=== PATIENT | male | born 1940 | race Caucasian/White ===

== ENCOUNTER 2017-07-29 12:20 | Outpatient (CLI) | payer MEDICARE ==
[2017-07-29] MEDS ORDERED: Iopamidol 370 76% 100 ML VIAL ONE (13:54)
--- NOTE | 2017-07-29 14:56 | CT ---
CT OF THE CHEST WITH CONTRASTS: Date: 07/29/17 COMPARISON: 12/26/14. HISTORY: Abnormal imaging of the lung field on prior imaging at an outside hospital. TECHNIQUE: Multiple contiguous axial images were obtained in a CT of the chest with contrast. Coronal reformats were performed. FINDINGS: There is a stable very small peripheral nodular opacity on image 43 and 44 of 69 in the left lower lo be. This measures 4.0 mm in size. No other pulmonary nodules or masses are seen. No pneumothorax or p leural effusion present. The heart is upper limits of normal in size. There are calcifications in the aorta and coronary arter ies. A pacemaker is seen with its leads in the right atrium and ventricle. No hilar or mediastinal ly mphadenopathy seen. The visualized subdiaphragmatic structures are unremarkable. Degenerative changes are seen in the spi ne. IMPRESSION: No significant intrathoracic abnormality. POS: JASPREET
== END 2017-07-29 12:21 | disposition home or self-care (01) ==
LOC: CT 12:20
PROVIDERS: ATTEND Internal Medicine Pulmonary Disease
DX: R91.8 Other nonspecific abnormal finding of lung field (principal)
CPT/HCPCS: 71260

== ENCOUNTER 2018-02-11 18:01 | Observation (INO) | payer MEDICARE ==
[2018-02-11 19:04] LABS: Troponin I 0.014 ng/mL (< 0.028)
[2018-02-11] MEDS ORDERED: Nitroglycerin 0.4 MG TAB (25 Tab Bottle) ONE (19:10)
[2018-02-11] MEDS ORDERED: Sodium Chloride 0.9% 1,000 ML IV SCH (21:34)
[2018-02-11] MEDS ORDERED: Ondansetron HCl/PF 4 MG/2 ML Vial IVP PRN ×2 (21:34→22:21)
[2018-02-11] MEDS ORDERED: Ondansetron ODT 4 MG TAB SL PRN (21:34)
[2018-02-11] MEDS ORDERED: Acetaminophen 325 MG TAB PO PRN ×2 (21:34→22:21)
[2018-02-11 21:46] VITALS: BMI 26.3
[2018-02-11 22:02] LABS: Troponin I Less than 0.010 ng/mL (< 0.028)
[2018-02-11] MEDS ORDERED: hydrALAZINE 20 MG/ML VIAL SLOW IVP PRN (22:21)
[2018-02-11] MEDS ORDERED: Nitroglycerin 0.4 MG TAB (25 Tab Bottle) SL PRN (22:21)
[2018-02-11] MEDS ORDERED: Ondansetron ODT 4 MG TAB PO PRN (22:21)
[2018-02-11] MEDS ORDERED: Mag-Al 1200 mg/1200 mg/30 ML UDCUP PO PRN (22:21)
[2018-02-11] MEDS ORDERED: Nitroglycerin 0.4 MG TAB (25 Tab Bottle) PO PRN (22:21)
[2018-02-12 01:26] LABS: Troponin I Less than 0.010 ng/mL (< 0.028)
--- NOTE | 2018-02-12 04:54 | HP ---
PRIMARY CARE PHYSICIAN: Tam Dowd MD CHIEF COMPLAINT: Chest pain. HISTORY OF PRESENT ILLNESS: Mr. Samuels is a pleasant 77-year-old gentleman who has a history of hyper tension as well as coronary artery disease. He presented to the emergency room with complaints of ch est pain, which he says started about 2 days ago and it started in the evening while he was lying kenny und and watching television. He says that the pain was on the right side of his chest, it was sharp and stabbing pain and it would last about 2 to 3 seconds and then go away, it got progressively worse over the next couple of days and he noticed that it started to move over to the left side of his ranjeet st and into his back. He says it has gotten as bad as a 7-03/26. He had no nausea or vomiting with i t. No diaphoresis, but he did notice some shortness of breath. He came to the emergency room for ev aluation. He says he was given a nitroglycerin which helped the shortness of breath, but it did help the pain much and he is being placed in observation for further evaluation. It is reported he had a CT scan of the chest at the outside emergency room, which was negative for PE. He has had occasiona l cough, but no congestion, no fevers, no chills. He denies any PND, no orthopnea. No lower extremi ty edema except on the right ankle, which sometimes swells from a previous surgery and injury. REVIEW OF SYSTEMS: All systems were reviewed and negative except as mentioned in the history of pres ent illness. PAST MEDICAL HISTORY: Hypertension, coronary artery disease, gastroesophageal reflux disease, arthri tis, bladder cancer, crush injury to his leg as well as a deep vein thrombosis and status post filter placement. ALLERGIES: No known drug allergies. PAST SURGICAL HISTORY: He has had a stent to the LAD. He has had 2 other stents, pacemaker, back ramirez rgery x2, foot surgery due to the crush injury, a bladder tumor extraction, [place] filter placeme nt, and hernia repair. SOCIAL HISTORY: He is . He is a former smoker, he quit in 1992. He denies any alcohol use. CODE STATUS: FULL CODE and his medical power of staff attorney is his . FAMILY HISTORY: Significant for heart disease and hypertension. MEDICATIONS: Include amlodipine 5 mg daily, atenolol 25 mg daily, isosorbide mononitrate 15 mg daily , aspirin 81 mg daily, atorvastatin 20 mg daily, citalopram 20 mg daily, meloxicam as needed, and Nit rostat 0.4 mg daily. PHYSICAL EXAMINATION: GENERAL: He is alert and oriented. He appears to be in no acute distress. He is well-developed, we ll-nourished. VITAL SIGNS: His blood pressure was 132/66, heart rate 60, respiratory rate of 14, temperature is 98 .9. HEENT: Pupils are equal, round, and reactive. Extraocular muscles are intact. His sclerae are anic teric. Throat: He has got poor dentition. There is no erythema, no exudates. NECK: No adenopathy, no bruits. LUNGS: Clear to auscultation. There was no wheezing, no rales. CARDIOVASCULAR: He has a normal S1, S2. I did not appreciate an S3 or S4. No murmurs, clicks, no r ubs. ABDOMEN: Soft, it is nontender, nondistended. Positive for bowel sounds. There is no rebound or gu arding. EXTREMITIES: There is no edema nor clubbing or cyanosis. He has got 2+ dorsalis pedis pulses bilate rally. NEUROLOGICALLY: The exam is grossly nonfocal. Muscle strength is intact. SKIN/INTEGUMENT: There are no skin changes. No rash. LABORATORY AND DIAGNOSTIC RESULTS: Troponin was 0.014 and there were no grossly abnormal lab results reported and these were from the report from the emergency room. EKG was atrial paced and as previo usly mentioned, he had a CT angiogram of the chest which was negative for PE. ASSESSMENT AND PLAN: This is a pleasant 77-year-old gentleman who is being admitted for chest pain. It is unclear whether or not this is cardiac in origin. The patient says he cannot remember the sym ptoms he had with his previous stents. Therefore, given his extensive cardiac history, he will be pl aced in observation. We will get another set of cardiac enzymes and a nuclear stress test in the a.m . should he rule out. We will continue his usual medications for hypertension as well as coronary ar camilla disease with the exception of the Isordil, which will be substituted for nitro paste.
[2018-02-12 04:57] LABS: Cardiac Risk 2.7 (Less than 4.5)
[2018-02-12] MEDS: Nitroglycerin 2% Ointment 1 INCH/1 GM Packet TOP SCH ×4 (05:54→22:08)
[2018-02-12] MEDS ORDERED: Aspirin 325 mg Enteric Coated Tablet PO SCH (09:00)
[2018-02-12] MEDS ORDERED: Aspirin 325 MG TAB PO SCH (09:00)
[2018-02-12] MEDS: Amlodipine 10 MG TAB PO SCH (09:21)
[2018-02-12] MEDS: Famotidine 20 MG TAB PO SCH ×2 (09:21→20:38)
[2018-02-12] MEDS: Atenolol 25 MG TAB PO SCH (09:22)
[2018-02-12] MEDS: Atorvastatin Calcium 20 MG TAB PO SCH (09:22)
[2018-02-12] MEDS: Citalopram 20 MG TAB PO SCH (09:22)
[2018-02-12] MEDS: Enoxaparin Sodium 40 MG/0.4 ML SYRINGE SC SCH (09:27)
[2018-02-12] MEDS ORDERED: ADENOSINE 60 MG/20 ML VIAL ONE (09:33)
--- NOTE | 2018-02-12 17:45 | NM ---
NUCLEAR MEDICINE CARDIAC STRESS WITH EF AND WALL MOTION: 02/12/18 HISTORY: Chest pain. History of previous cardiac catheterization and stent placement. COMPARISON: 04/01/13. TECHNIQUE: Patient administered 9 millicuries of technetium 99m Sestamibi for rest imaging and 30 millicuries of technetium 99m Sestamibi for stress imaging. Cardiac gating is performed. FINDINGS: Homogeneous distribution of radiotracer in the left ventricle. No reversibility. No filling defect. TID is 1.12. End diastolic volume is 125 mL. End systolic volume is 56 mL. CARDIAC GATING: Normal motion and thickening. 55% ejection fraction. IMPRESSION: 1. No reversibility or filling defect. 2. 55% ejection fraction. POS: JASPREET
--- NOTE | 2018-02-12 19:28 | PDOC.PN ---
- Subjective Encounter Start Date: 02/12/18 Encounter Start Time: 19:29 Pt seen for followup re: chest pain. Reports ongoing chest pain, denies nausea or vomiting. - Objective Resuscitation Status: Resuscitation Status FULL:Full Resuscitation MAR Reviewed: Yes Vital Signs & Weight: Vital Signs (12 hours) Temp Pulse Resp BP Pulse Ox 02/12/18 16:51 97.4 F L 62 20 160/76 H 95 02/12/18 11:57 97.5 F L 62 20 141/65 H 91 L 02/12/18 08:00 97.6 F 65 24 H 134/64 93 L 02/12/18 07:30 98.6 F 61 16 Weight Weight 194 lb 1.6 oz I&O: 02/11/18 02/12/18 02/13/18 06:59 06:59 06:59 Intake Total 240 300 Output Total 150 Balance 90 300 EKG Reviewed by me: Yes (Tele: NSR) Phys Exam - Physical Examination Constitutional: NAD HEENT: moist MMs, sclera anicteric, oral pharynx no lesions, 2+ tonsils Neck: no nodes, no JVD, supple, full ROM Respiratory: no wheezing, no rales, no rhonchi, clear to auscultation bilateral Cardiovascular: RRR, no rub S1, s2 Gastrointestinal: soft, non-tender, no distention, positive bowel sounds Musculoskeletal: no edema Neurological: moves all 4 limbs Psychiatric: normal affect, A&O x 3 Dx/Plan (1) Chest pain Code(s): R07.9 - CHEST PAIN, UNSPECIFIED Status: Acute Comment: Stress test normal, CTA -ve for PE. ? trial of Ranexa. (2) HTN (hypertension) Code(s): I10 - ESSENTIAL (PRIMARY) HYPERTENSION Status: Chronic Comment: Monitor vital signs, titrate antihypertensives as needed. (3) GERD (gastroesophageal reflux disease) Code(s): K21.9 - GASTRO-ESOPHAGEAL REFLUX DISEASE WITHOUT ESOPHAGITIS Status: Chronic Comment: continue famotidine (4) S/P IVC filter Status: Chronic - Plan * . Review of Systems - Review of Systems Constitutional: negative: fever, chills, sweats, weakness, malaise Respiratory: SOB with Excertion. negative: Cough, Shortness of Breath, Pleuritic Pain, Wheezing Cardiovascular: chest pain. negative: palpitations, orthopnea, paroxysmal nocturnal dyspnea, edema, light headedness Gastrointestinal: negative: Nausea, Vomiting, Abdominal Pain, Diarrhea, Constipation, Melena, Hematochezia Genitourinary: negative: Dysuria, Frequency, Incontinence, Hematuria, Retention Skin: negative: Rash, Lesions, Lei, Bruising - Medications/Allergies Allergies/Adverse Reactions: Allergies Allergy/AdvReac Type Severity Reaction Status Date / Time No Known Allergies Allergy Verified 02/11/18 21:41 Medications: Current Medications Acetaminophen (Tylenol) 650 mg PO Q4H PRN PRN Reason: Headache/Fever or Pain Al Hydroxide/Mg Hydroxide (Maalox) 30 ml PO Q6H PRN PRN Reason: Heartburn or Indigestion Amlodipine Besylate (Norvasc) 10 mg PO DAILY COUNT INCLUDES THE [facility] Last Admin: 02/12/18 09:21 Dose: 10 mg Aspirin (Aspirin) 325 mg PO DAILY COUNT INCLUDES THE [facility] Last Admin: 02/12/18 09:22 Dose: 325 mg Atenolol (Tenormin) 25 mg PO DAILY COUNT INCLUDES THE [facility] Last Admin: 02/12/18 09:22 Dose: Not Given Atorvastatin Calcium (Lipitor) 20 mg PO DAILY COUNT INCLUDES THE [facility] Last Admin: 02/12/18 09:22 Dose: 20 mg Citalopram Hydrobromide (Celexa) 20 mg PO DAILY COUNT INCLUDES THE [facility] Last Admin: 02/12/18 09:22 Dose: 20 mg Enoxaparin Sodium (Lovenox) 40 mg SC 0900 COUNT INCLUDES THE [facility] Last Admin: 02/12/18 09:27 Dose: Not Given Famotidine (Pepcid) 20 mg PO BID COUNT INCLUDES THE [facility] Last Admin: 02/12/18 09:21 Dose: 20 mg Hydralazine HCl (Apresoline) 10 mg SLOW IVP Q4H PRN PRN Reason: Systolic BP > 180 Nitroglycerin (Nitro-Bid 2% Ointment) 0.5 inch TOP Q8HR COUNT INCLUDES THE [facility] Last Admin: 02/12/18 16:50 Dose: 0.5 inch Nitroglycerin (Nitrostat) 0.4 mg SL Q5MIN PRN PRN Reason: Chest Pain Ondansetron HCl (Zofran Odt) 4 mg PO Q6H PRN PRN Reason: Nausea/Vomiting Ondansetron HCl (Zofran) 4 mg IVP Q6H PRN PRN Reason: Nausea/Vomiting
[2018-02-12] MEDS ORDERED: Acetaminophen/Codeine 30-300mg Tablet PO PRN (19:31)
[2018-02-13] MEDS: Nitroglycerin 2% Ointment 1 INCH/1 GM Packet TOP SCH ×2 (05:09→15:02)
[2018-02-13] MEDS ORDERED: Aspirin 81 mg Enteric Coated Tablet PO SCH (09:00)
[2018-02-13] MEDS: Atenolol 25 MG TAB PO SCH (09:41)
[2018-02-13] MEDS: Amlodipine 10 MG TAB PO SCH (09:41)
[2018-02-13] MEDS: Famotidine 20 MG TAB PO SCH (09:41)
[2018-02-13] MEDS: Enoxaparin Sodium 40 MG/0.4 ML SYRINGE SC SCH (09:42)
[2018-02-13] MEDS: Citalopram 20 MG TAB PO SCH (09:42)
[2018-02-13] MEDS: Atorvastatin Calcium 20 MG TAB PO SCH (09:42)
[2018-02-13] MEDS ORDERED: Naproxen 500 MG TAB PO SCH ×2 (14:00→21:00)
[2018-02-13 15:44] VITALS: BP 138/72; TEMP 98.1
--- NOTE | 2018-02-13 21:02 | CON ---
DATE OF CONSULTATION: 02/13/2018 HISTORY: Valdemar Samuels is a pleasant 77-year-old white male who follows with Dr. Sebastian although I did place a pacemaker in him in 07/2012. He apparently underwent coronary angiography in [place] in 1999 and was found to have severe stenosis in small vessels, felt not to be amenable to percutaneous intervention. He once was hospitalized here in 07/2012 with an episode of dizziness, lightheadedness and presyncope. Monitor at home apparently registered heart rate in the 30s. He was taken to [facility], found to have heart rates in the 30s and 40s and here, he had heart rates as low as 35 on telemetry. He also would have episodes of severe chest pain lasting hours. This was a band-like area in his midsternal chest region without radiation or associated symptoms. He then underwent cardiac catheterization by Dr. Sebastian. There was a 50%-60% first diagonal stenosis. There was a branch of the first obtuse marginal which had a 95% stenosis with thrombus present. He underwent placement of Promus 2.25 x 12 mm stent. The following day he underwent placement of a dual chamber pacemaker via the left subclavian approach. In 12/2015, he again underwent catheterization and was found to have a 40%-50% stenosis in the mid LAD and 70% apical LAD stenosis. There continued to be good stent result in the obtuse marginal. He underwent back surgery and then continued to complain of exertional dyspnea. He underwent repeat catheterization in 01/2016. There was a 50%-60% proximal LAD with mean luminal area greater than 6.0 mm2. He then underwent placement of Synergy 2.25 x 12 mm stent in the apical LAD. He had Lexiscan Cardiolite scan performed in the office in 07/2017. This probably was normal without evidence of ischemia. He was last seen in the office on 11/04/2017. He denied any chest discomfort. He now presents to the [facility] on 02/11/2018 complaining of 3-4 days of chest discomfort. These episodes occur at rest where he gets a very sharp pain on the right side of his chest, sometimes radiating to the back around to his scapula. None of the episodes seem to last for more than 1-2 seconds, although he may have repetitive episodes of pain every 2-3 minutes. He went to the [facility], underwent CT angiogram, apparently he had no evidence for pulmonary emboli and was transferred here. Cardiac enzymes were unremarkable. Yesterday, he underwent adenosine Cardiolite testing, which revealed no evidence of ischemia. There were no EKG changes during the test. He did have somewhat more of a prolonged episode of his chest discomfort that did seem as sharp in nature as previously after the stress test. His pain is not pleuritic in nature. He did notice one palpable are of tenderness yesterday. PAST MEDICAL HISTORY: Hypertension, coronary artery disease, hypercholesterolemia, GERD, bladder cancer, deep vein thrombosis after crush injury to his leg and placement of an IVC filter. OPERATIONS: He has had a stent placed in the obtuse marginal and then in the left anterior descending, pacemaker placement, bladder tumor extraction, [place] filter placement, hernia repair, back surgery x2, and foot surgery after crush injury. MEDICATIONS: Amlodipine 10 mg daily, Ecotrin 81 daily, atenolol 25 daily, atorvastatin 20 mg daily, Celexa 20 daily, isosorbide mononitrate 15 mg daily, and nitroglycerin p.r.n. ALLERGIES: None. SOCIAL HISTORY: He smoked until 1992. He denies any alcohol use. FAMILY HISTORY: Significant for coronary artery disease. REVIEW OF SYSTEMS: Twelve point review of systems otherwise unremarkable. PHYSICAL EXAMINATION: VITAL SIGNS: 123/58, pulse of 60. HEENT: PERRL. NECK: Supple. LUNGS: Chest is clear. CARDIAC: S1, S2 were normal, without any S3, S4 or murmurs. ABDOMEN: Normal bowel sounds, without tenderness, organomegaly. EXTREMITIES: Revealed no clubbing, cyanosis or edema. NEUROLOGIC: Grossly intact. SKIN: Warm and dry. LABORATORY DATA: EKG revealed atrial pacing, nonspecific ST and T-wave changes. Cardiac enzymes were unremarkable. Hemoglobin 14.2, hematocrit 43.6, white count 5600, platelets 153,000. Cholesterol 114, triglycerides 53, HDL 42 , LDL 61. IMPRESSION: 1. Atypical, noncardiac chest pain, most consistent with musculoskeletal pain. 2. Normal Cardiolite at this time. 3. History of drug-eluting stent placement in the first obtuse marginal branch and in the apical left anterior descending. 4. Status post pacemaker placement for near syncope with heart rates in the 30s. 5. Hypertension. 6. Hypercholesterolemia. 7. History of deep venous thrombosis with inferior vena cava filter placement. PLAN: Mr. Samuels's chest discomfort is atypical for cardiac pain and only lasts for a few seconds at a time. He has a normal Cardiolite at this time. From a cardiac standpoint, I would not change any of his medications. Consideration can be given to use of any inflammatory medications to try to help with this discomfort. At the present time, I do not feel any further cardiac evaluation or change in his medications is warranted. SCOTTIE
--- NOTE | 2018-02-14 01:12 | DIS ---
PRIMARY CARE PROVIDER: Tam Dowd M.D. DATE OF ADMISSION: 02/11/2018 DATE OF DISCHARGE: 02/13/2018 DISCHARGE DIAGNOSIS: Chest pain. CONDITION OF PATIENT ON THE DAY OF DISCHARGE: Stable. I assessed Mr. Samuels on the day of discharge. He reports that chest pain is better, but still present, on and off. Vital signs are stable. S1 a nd S2 are heard, regular. Lungs are clear to auscultation bilaterally. HOSPITAL COURSE: Mr. Samuels is a pleasant 77-year-old gentleman, who was admitted to [facility] following transfer from [facility] on 02/11/2018 for chest pain. He w as already ruled out for pulmonary embolism with a CT angiogram at [facility]. He had a nuclear stress test, which did not show any reversibility or filling defect and 55% left ventricular ejection fraction. Because of ongoing chest discomfort, he was also seen by Cardiology Service. It was felt that his chest pain was likely musculoskeletal. He is advised to use naproxen, over-the-co unter, as directed. DISCHARGE MEDICATIONS: No change was made to the preadmission home medications as dictated by Dr. Niall castanon on history and physical note dated 02/11/2018. CONSULTATIONS DURING THIS HOSPITALIZATION: Cardiology, Dr. Adams. During this hospitalization, he had troponin I that was negative x3, triglycerides 53, cholesterol 11 4, LDL cholesterol 61 and HDL cholesterol 42. Many thanks for allowing me to participate in your patient's care. Please feel free to contact me wi th any questions or concerns. DISCHARGE DESTINATION: Home.
--- NOTE | 2018-02-14 11:33 | STRESS ---
Acquisition Time: 2018-02-12 13:57:04 Total Exercise Time: 00:04:00 Test Indications: CHEST PAIN Medications: Protocol: ADENOSINE Max HR: 063 BPM 44% of Pred: 142 BPM Max BP: 128/058 mmHG Max Work Load: 1.0 METS RESTING ECG: ATRIAL PACED RHYTHM AT 60 BPM SYMPTOMS: NONE NORMAL BP REPONSE ECTOPY: NONE ECG STRESS: NO SIGNIFICANT CHANGES INTERPRETATION: AWAIT NUCLEAR IMAGES FOR DEFINITIVE DIAGNOSIS Confirmed by EDDIE MORALES ([id number]), assistant film editor ERNESTO CHERY ([id number]) on 02/14/2018 11:33:00 AM Referred By: MD Aron BUSTILLO Confirmed By:EDDIE MORALES
--- NOTE | 2018-02-20 12:02 | EKG ---
Test Reason : Blood Pressure : / mmHG Vent. Rate : 065 BPM Atrial Rate : 065 BPM P-R Int : 194 ms QRS Dur : 084 ms QT Int : 392 ms P-R-T Axes : 000 -06 021 degrees QTc Int : 407 ms Atrial-paced rhythm Nonspecific ST abnormality Abnormal ECG Confirmed by CLARA KELLER, PILLO Al ([id number]), editor managing newspaper LIYAH MUNSON ([id number]) on 02/20/2018 12:02:35 PM Referred By: Confirmed By:PILLO ELIZABETH MD
== END 2018-02-13 17:55 | disposition home or self-care (01) ==
LOC: ERS 18:01 → 2SW 19:17
PROVIDERS: ADMIT Internal Medicine; ATTEND Internal Medicine
DX: R07.89 Other chest pain (principal); I10 Essential (primary) hypertension; E78.00 Pure hypercholesterolemia, unspecified; K21.9 Gastro-esophageal reflux disease without esophagitis; I25.10 Atherosclerotic heart disease of native coronary artery without angina pectoris; Z87.891 Personal history of nicotine dependence; Z95.5 Presence of coronary angioplasty implant and graft; Z95.0 Presence of cardiac pacemaker; Z79.899 Other long term (current) drug therapy; Z86.718 Personal history of other venous thrombosis and embolism
CPT/HCPCS: 78452; 80061; 84484 ×3; 93005; 93017; 94760 ×2; 96372; 99285; A9500; G0378; 36415; J0153; J1650

== ENCOUNTER 2019-01-18 14:41 | Outpatient (CLI) | payer MEDICARE ==
--- NOTE | 2019-01-18 14:56 | RAD ---
Exam: Chest 2 views COMPARISON: 06/26/2015 HISTORY: Dyspnea. FINDINGS: Stable left-sided transvenous pacemaker. Stable atherosclerosis of the aorta. Normal cardiac silhouet te Pulmonary vessels and hilum are normal Costophrenic angles are clear. Chronic changes, without consolidation or mass. No pneumothorax or oss eous abnormalities Incompletely evaluated fusion hardware in the lumbar spine IMPRESSION: Atherosclerosis. No acute cardiopulmonary process. Transcribed Date/Time: 01/18/2019 3:02 PM
== END 2019-01-18 14:42 | disposition home or self-care (01) ==
LOC: RAD 14:41
PROVIDERS: ATTEND Internal Medicine Pulmonary Disease
DX: R06.00 Dyspnea, unspecified (principal); I70.0 Atherosclerosis of aorta
CPT/HCPCS: 71046

== ENCOUNTER 2022-02-27 10:25 | Outpatient (CLI) | payer MEDICARE ==
[2022-02-27] MEDS ORDERED: Iopamidol 370 76% 100 ML VIAL ONE (13:40)
[2022-02-27] MEDS ORDERED: Acetaminophen 325 MG TAB PO PRN (16:37)
[2022-02-27] MEDS ORDERED: Ondansetron ODT 4 MG TAB PO PRN (16:37)
[2022-02-27] MEDS ORDERED: cefTRIAXone\\ROCEPHIN 1 GM in Sodium Chloride 0.9% 100 ML IVPB SCH (17:00)
[2022-03-01 08:42] LABS: #Eosinphils 0.1 thou/uL (0.0-0.7); #Lymphocytes 1.7 thou/uL (1.20-3.40); #Monocytes 0.4 thou/uL (0.11-0.59); #Neutrophils 2.3 thou/uL (1.40-6.50); %Basophils 1.1 % (0.0-1.0); %Eosinophils 2.7 % (0.0-10.0); %Lymphocytes 38.1 % (21.0-51.0); %Monocytes 7.8 % (0.0-10.0); %Neutrophils 50.4 % (42.0-75.0); Hemoglobin 11.9 g/dL (14.0-18.0); Mean Corpuscular HGB CONC 31.5 g/dL (32.0-36.0); Mean Corpuscular Hemoglobin 26.8 pg (27.0-31.0); Mean Corpuscular Volume 85.2 fL (78.0-98.0); Mean Platelet Volume 9.9 fL (7.4-10.4); Platelet Count 118 thou/uL (130-400); RBC Distribution Width 14.8 % (11.5-14.5); Red Blood Cell (RBC) Count 4.43 mill/uL (4.70-6.10); White Blood Cell (WBC) Count 4.5 thou/uL (4.8-10.8)
[2022-03-01 09:00] LABS: Anion Gap 13 mmol/L (10-20); BUN (Urea Nitrogen) 16 mg/dL (8.4-25.7); Calc. Creatinine Clearance 0 mL/min (70-130); Carbon Dioxide 20 mmol/L (23-31); Chloride 110 mmol/L (98-107); Estimated GFR 87; Glucose 88 mg/dL (83-110); Potassium 3.8 mmol/L (3.5-5.1); Sodium 139 mmol/L (136-145)
[2022-03-02 05:18] LABS: #Eosinphils 0.1 thou/uL (0.0-0.7); #Monocytes 0.4 thou/uL (0.11-0.59); #Neutrophils 1.9 thou/uL (1.40-6.50); %Basophils 0.7 % (0.0-1.0); %Eosinophils 2.7 % (0.0-10.0); %Lymphocytes 45.7 % (21.0-51.0); %Monocytes 8.7 % (0.0-10.0); %Neutrophils 42.2 % (42.0-75.0); Hemoglobin 13.1 g/dL (14.0-18.0); Mean Corpuscular HGB CONC 31.6 g/dL (32.0-36.0); Mean Corpuscular Hemoglobin 27.1 pg (27.0-31.0); Mean Corpuscular Volume 85.9 fL (78.0-98.0); Platelet Count 140 thou/uL (130-400); RBC Distribution Width 14.8 % (11.5-14.5); Red Blood Cell (RBC) Count 4.82 mill/uL (4.70-6.10); White Blood Cell (WBC) Count 4.4 thou/uL (4.8-10.8)
[2022-03-02 05:35] LABS: Anion Gap 14 mmol/L (10-20); BUN (Urea Nitrogen) 14 mg/dL (8.4-25.7); Calc. Creatinine Clearance 0 mL/min (70-130); Calcium 9.4 mg/dL (7.8-10.44); Chloride 111 mmol/L (98-107); Estimated GFR 85; Glucose 89 mg/dL (83-110); Potassium 3.9 mmol/L (3.5-5.1); Sodium 142 mmol/L (136-145)
[2022-03-02 06:34] LABS: Carbon Dioxide 21 mmol/L (23-31)
== END 2022-02-27 10:26 | disposition home or self-care (01) ==
LOC: CT 10:25
PROVIDERS: ATTEND Thoracic Surgery (Cardiothoracic Vascular Surgery)
DX: I25.10 Atherosclerotic heart disease of native coronary artery without angina pectoris (principal); I10 Essential (primary) hypertension; I65.23 Occlusion and stenosis of bilateral carotid arteries; I28.8 Other diseases of pulmonary vessels
CPT/HCPCS: 70498; 82565

== ENCOUNTER 2022-02-27 11:38 | Inpatient (IN) | payer MEDICARE ==
[2022-02-27 12:23] LABS: Bacteria/HPF 2+ HPF (None Seen); Bilirubin Negative (Negative); Blood, Urine Negative (Negative); Clarity Clear (Clear); Glucose, Urine (Dipstick) Normal (Negative); Ketone, Urine Negative (Negative); Leukocyte 75 Leu/uL (Negative); Nitrite Negative (Negative); Protein, Urine (Dipstick) Negative (Neg-Trace); RBC/HPF 0-3 HPF (0-3); Specific Gravity, Urine 1.042 (1.002-1.036); Squamous Epithelial 0-3 HPF (0-3); Urobilinogen Normal mg/dL (Less than 2); WBC/HPF 21-50 HPF (0-3); pH, Urine 7.5 (5.0-9.0)
[2022-02-27] MEDS ORDERED: hydrALAZINE 20 MG/ML VIAL ONE (13:01)
[2022-02-27 13:41] LABS: #Eosinphils 0.1 thou/uL (0.0-0.7); #Lymphocytes 1.5 thou/uL (1.20-3.40); #Monocytes 0.3 thou/uL (0.11-0.59); #Neutrophils 2.9 thou/uL (1.40-6.50); %Basophils 0.9 % (0.0-1.0); %Eosinophils 1.1 % (0.0-10.0); %Lymphocytes 31.6 % (21.0-51.0); %Monocytes 6.7 % (0.0-10.0); %Neutrophils 59.6 % (42.0-75.0); Hemoglobin 12.1 g/dL (14.0-18.0); Mean Corpuscular HGB CONC 30.7 g/dL (32.0-36.0); Mean Corpuscular Hemoglobin 26.3 pg (27.0-31.0); Mean Corpuscular Volume 85.6 fL (78.0-98.0); Mean Platelet Volume 9.8 fL (7.4-10.4); Platelet Count 128 thou/uL (130-400); RBC Distribution Width 14.8 % (11.5-14.5); Red Blood Cell (RBC) Count 4.58 mill/uL (4.70-6.10); White Blood Cell (WBC) Count 4.8 thou/uL (4.8-10.8)
[2022-02-27 14:03] LABS: ALT (SGPT) 15 U/L (8-55); AST (SGOT) 16 U/L (5-34); Albumin 4.2 g/dL (3.4-4.8); Alkaline Phosphatase 79 U/L (40-110); Anion Gap 15 mmol/L (10-20); BUN (Urea Nitrogen) 14 mg/dL (8.4-25.7); Bilirubin, Total 0.6 mg/dL (0.2-1.2); Calc. Creatinine Clearance 0 mL/min (70-130); Calcium 9.3 mg/dL (7.8-10.44); Carbon Dioxide 22 mmol/L (23-31); Chloride 106 mmol/L (98-107); Estimated GFR 87; Globulin 3.1 g/dL (2.4-3.5); Glucose 88 mg/dL (83-110); Lipase 26 U/L (8-78); Potassium 3.8 mmol/L (3.5-5.1); Protein, Total 7.3 g/dL (5.8-8.1); Sodium 139 mmol/L (136-145)
[2022-02-27] MEDS ORDERED: cefTRIAXone\\ROCEPHIN 1 GM VIAL ONE (14:54)
[2022-02-27 18:22] VITALS: BMI 27.8
[2022-02-28] MEDS ORDERED: Acetaminophen 325 MG TAB PO PRN (01:13)
[2022-02-28] MEDS ORDERED: Senokot S 8.6-50 MG TAB PO PRN (01:13)
[2022-02-28] MEDS ORDERED: Melatonin 3 MG TAB PO PRN (01:17)
[2022-02-28] MEDS: Sodium Chloride 0.9% 1,000 ML IV SCH ×2 (02:04→20:35)
[2022-02-28 05:17] LABS: #Basophils 0.1 thou/uL (0.0-0.2); #Eosinphils 0.1 thou/uL (0.0-0.7); #Lymphocytes 1.7 thou/uL (1.20-3.40); #Monocytes 0.4 thou/uL (0.11-0.59); #Neutrophils 2.7 thou/uL (1.40-6.50); %Eosinophils 2.1 % (0.0-10.0); %Lymphocytes 34.3 % (21.0-51.0); %Monocytes 8.1 % (0.0-10.0); %Neutrophils 54.5 % (42.0-75.0); Hemoglobin 12.4 g/dL (14.0-18.0); Mean Corpuscular HGB CONC 31.2 g/dL (32.0-36.0); Mean Corpuscular Hemoglobin 26.7 pg (27.0-31.0); Mean Corpuscular Volume 85.5 fL (78.0-98.0); Platelet Count 135 thou/uL (130-400); RBC Distribution Width 14.6 % (11.5-14.5); Red Blood Cell (RBC) Count 4.65 mill/uL (4.70-6.10)
[2022-02-28] MEDS: hydrALAZINE 20 MG/ML VIAL SLOW IVP PRN ×2 (05:23→08:38)
[2022-02-28 05:46] LABS: ALT (SGPT) 15 U/L (8-55); AST (SGOT) 16 U/L (5-34); Albumin 3.8 g/dL (3.4-4.8); Alkaline Phosphatase 75 U/L (40-110); Anion Gap 13 mmol/L (10-20); BUN (Urea Nitrogen) 15 mg/dL (8.4-25.7); Bilirubin, Total 0.5 mg/dL (0.2-1.2); Calc. Creatinine Clearance 84 mL/min (70-130); Calcium 9.3 mg/dL (7.8-10.44); Carbon Dioxide 22 mmol/L (23-31); Chloride 109 mmol/L (98-107); Estimated GFR 88; Glucose 97 mg/dL (83-110); Potassium 3.7 mmol/L (3.5-5.1); Protein, Total 6.8 g/dL (5.8-8.1); Sodium 140 mmol/L (136-145)
[2022-02-28] MEDS: Atenolol 25 MG TAB PO SCH (08:34)
[2022-02-28] MEDS: Heparin 5,000 UNITS/ML VIAL SC SCH ×2 (08:34→20:35)
[2022-02-28] MEDS: Oxybutynin ER 5 MG TAB PO SCH (08:34)
[2022-02-28] MEDS: Aspirin 81 mg Enteric Coated Tablet PO SCH (08:35)
[2022-02-28] MEDS: cefTRIAXone\\ROCEPHIN 1 GM in Sodium Chloride 0.9% 100 ML IVPB SCH (14:21)
[2022-02-28] MEDS: Atorvastatin Calcium 20 MG TAB PO SCH (20:35)
[2022-03-01] MEDS: Atenolol 25 MG TAB PO SCH (07:54)
[2022-03-01] MEDS: Aspirin 81 mg Enteric Coated Tablet PO SCH (07:54)
[2022-03-01] MEDS: Oxybutynin ER 5 MG TAB PO SCH (07:54)
[2022-03-01] MEDS: Heparin 5,000 UNITS/ML VIAL SC SCH ×2 (07:55→21:59)
[2022-03-01] MEDS: cefTRIAXone\\ROCEPHIN 1 GM in Sodium Chloride 0.9% 100 ML IVPB SCH (14:26)
[2022-03-01] MEDS: Sodium Chloride 0.9% 1,000 ML IV SCH (17:22)
[2022-03-01] MEDS: Mometasone 100 MCG/Formoterol 5 MCG 120 PUFF INHALER INH SCH (19:26)
[2022-03-01] MEDS: Atorvastatin Calcium 20 MG TAB PO SCH (21:59)
[2022-03-01] MEDS: hydrALAZINE 20 MG/ML VIAL SLOW IVP PRN (22:04)
[2022-03-01] MEDS ORDERED: Nitroglycerin 0.4 MG TAB (25 Tab Bottle) SL PRN (22:28)
[2022-03-01] MEDS ORDERED: Morphine 2 MG/ML VIAL SLOW IVP SCH (22:32)
[2022-03-01 22:58] LABS: Anion Gap 13 mmol/L (10-20); BUN (Urea Nitrogen) 16 mg/dL (8.4-25.7); Calc. Creatinine Clearance 72 mL/min (70-130); Carbon Dioxide 21 mmol/L (23-31); Chloride 107 mmol/L (98-107); Estimated GFR 79; Glucose 91 mg/dL (83-110); Magnesium 1.9 mg/dL (1.6-2.6); Potassium 4.3 mmol/L (3.5-5.1); Sodium 137 mmol/L (136-145)
[2022-03-01] MEDS ORDERED: Cyclobenzaprine 10 MG TAB PO SCH (23:00)
[2022-03-01] MEDS ORDERED: Lidocaine 2% Viscous Solution 20 ML, Aluminum & Magnesium Hydroxide 30 ML, Donnatal Eli... SSW SCH (23:00)
[2022-03-01 23:03] LABS: Troponin I Less than 0.010 ng/mL (< 0.028)
[2022-03-02] MEDS ORDERED: Nitroglycerin 2% Ointment 1 INCH/1 GM Packet TOP SCH (00:30)
[2022-03-02] MEDS ORDERED: hydrALAZINE 20 MG/ML VIAL SLOW IVP SCH (00:30)
[2022-03-02] MEDS: Mometasone 100 MCG/Formoterol 5 MCG 120 PUFF INHALER INH SCH ×2 (06:58→19:18)
[2022-03-02] MEDS ORDERED: Amlodipine 5 MG TAB PO SCH (09:00)
[2022-03-02] MEDS: Heparin 5,000 UNITS/ML VIAL SC SCH ×2 (09:40→20:29)
[2022-03-02] MEDS: Oxybutynin ER 5 MG TAB PO SCH (09:41)
[2022-03-02] MEDS: Aspirin 81 mg Enteric Coated Tablet PO SCH (09:41)
[2022-03-02] MEDS: Atenolol 25 MG TAB PO SCH (09:42)
[2022-03-02] MEDS ORDERED: Lisinopril 20 MG TAB PO SCH (11:15)
[2022-03-02] MEDS: Cefdinir 300 MG CAP PO SCH (20:28)
[2022-03-02] MEDS: Atorvastatin Calcium 20 MG TAB PO SCH (20:28)
[2022-03-03] MEDS: Mometasone 100 MCG/Formoterol 5 MCG 120 PUFF INHALER INH SCH ×2 (07:18→18:34)
[2022-03-03] MEDS: Aspirin 81 mg Enteric Coated Tablet PO SCH (08:41)
[2022-03-03] MEDS: Atenolol 25 MG TAB PO SCH (08:42)
[2022-03-03] MEDS: Cefdinir 300 MG CAP PO SCH ×2 (08:43→20:08)
[2022-03-03] MEDS: Heparin 5,000 UNITS/ML VIAL SC SCH (08:43)
[2022-03-03] MEDS: Oxybutynin ER 5 MG TAB PO SCH (08:46)
[2022-03-03] MEDS ORDERED: Lisinopril 20 MG TAB PO SCH (09:00)
[2022-03-03] MEDS: Atorvastatin Calcium 20 MG TAB PO SCH (20:07)
[2022-03-03] MEDS: Lisinopril 20 MG TAB PO SCH (20:08)
[2022-03-04] MEDS: Mometasone 100 MCG/Formoterol 5 MCG 120 PUFF INHALER INH SCH ×2 (07:12→22:00)
[2022-03-04] MEDS: Cefdinir 300 MG CAP PO SCH (07:42)
[2022-03-04] MEDS: Atenolol 25 MG TAB PO SCH (07:42)
[2022-03-04] MEDS: Lisinopril 20 MG TAB PO SCH (07:43)
[2022-03-04] MEDS: Aspirin 81 mg Enteric Coated Tablet PO SCH (07:43)
[2022-03-04] MEDS: Oxybutynin ER 5 MG TAB PO SCH (07:44)
[2022-03-04] MEDS ORDERED: Protamine Sulfate 50 MG/5 ML VIAL ONE (11:38)
[2022-03-04] MEDS ORDERED: Bupivacaine PF 0.5% 30 ML VIAL ONE (11:38)
[2022-03-04] MEDS ORDERED: EPINEPHrine 1 MG/ML AMP ONE (11:38)
[2022-03-04] MEDS ORDERED: Heparin 5,000 UNITS/ML VIAL ONE (11:38)
[2022-03-04] MEDS ORDERED: fentaNYL Citrate/PF 100 MCG/2 ML SYRINGE ONE (11:57)
[2022-03-04] MEDS ORDERED: Lidocaine 1% MPF 2 ML VIAL ONE (12:05)
[2022-03-04] MEDS ORDERED: Sodium Chloride 0.9% 0 ML ONE (12:15)
[2022-03-04] MEDS ORDERED: CEFAZOLIN 2 GM VIAL ONE ×2 (12:15→13:19)
[2022-03-04] MEDS ORDERED: PROPOFOL 200 MG/20 ML VIAL ONE (12:51)
[2022-03-04] MEDS ORDERED: Rocuronium Bromide 10 MG/ML (10ML VIAL) ONE (12:51)
[2022-03-04] MEDS ORDERED: Glycopyrrolate 0.2 MG/ML 5 ML SYRINGE ONE (12:51)
[2022-03-04] MEDS ORDERED: Dexamethasone 20 MG/5 ML VIAL ONE (12:51)
[2022-03-04] MEDS ORDERED: Lidocaine 1% PF 5 ML VIAL ONE (12:51)
[2022-03-04] MEDS ORDERED: Ondansetron PF 4 MG/2 ML Vial ONE (12:51)
[2022-03-04] MEDS ORDERED: Sodium Chloride 0.9% 100 ML ONE (13:19)
[2022-03-04] MEDS ORDERED: Ondansetron PF 4 MG/2 ML Vial IVP PRN (14:31)
[2022-03-04] MEDS ORDERED: traMADol HCl 50 MG TAB PO PRN (14:31)
[2022-03-04] MEDS ORDERED: Acetaminophen 325 MG TAB PO PRN (14:31)
[2022-03-04] MEDS ORDERED: Phenylephrine 40 MG in Sodium Chloride 0.9% 250 ML 250 ML IVPB PRN (14:31)
[2022-03-04] MEDS ORDERED: Fentanyl 100 MCG/2 ML VIAL SLOW IVP PRN (14:31)
[2022-03-04] MEDS ORDERED: Sodium Chloride 0.9% 1,000 ML IV SCH (14:31)
[2022-03-04] MEDS ORDERED: niCARdipine 25 MG in Sodium Chloride 0.9% 250 ML 250 ML IVPB PRN (14:31)
[2022-03-04] MEDS ORDERED: Fentanyl 100 MCG/2 ML VIAL ONE (17:08)
[2022-03-04] MEDS: Atorvastatin Calcium 20 MG TAB PO SCH (20:43)
[2022-03-04] MEDS: CEFAZOLIN 2 GM in Sodium Chloride 0.9% 100 ML IVPB SCH (20:43)
[2022-03-05] MEDS: CEFAZOLIN 2 GM in Sodium Chloride 0.9% 100 ML IVPB SCH (05:24)
[2022-03-05] MEDS: Mometasone 100 MCG/Formoterol 5 MCG 120 PUFF INHALER INH SCH (07:45)
[2022-03-05] MEDS: Atenolol 25 MG TAB PO SCH (08:09)
[2022-03-05] MEDS: Oxybutynin ER 5 MG TAB PO SCH (08:11)
[2022-03-05] MEDS: Aspirin 81 mg Enteric Coated Tablet PO SCH (08:11)
[2022-03-05 08:15] VITALS: BP 124/64
[2022-03-05 08:33] VITALS: TEMP 98.4
[2022-03-05] MEDS ORDERED: Lisinopril 10 MG TAB PO SCH (09:00)
== END 2022-03-05 08:24 | disposition home or self-care (01) | DRG 38 ==
LOC: ERS 11:38 → T4-B 15:39 → OBSVTOIN 03-01 18:56 → 2SW 03-01 23:46 → CCU 03-04 11:08
PROVIDERS: ADMIT Thoracic Surgery (Cardiothoracic Vascular Surgery); ATTEND Internal Medicine
PROC: 03CK0ZZ Extirpation of Matter from Right Internal Carotid Artery, Open Approach (ICD-10-PCS; principal; 2022-03-04)
PROC: 03UK0KZ Supplement Right Internal Carotid Artery with Nonautologous Tissue Substitute, Open Approach (ICD-10-PCS; 2022-03-04)
DX: I65.23 Occlusion and stenosis of bilateral carotid arteries (principal); N39.0 Urinary tract infection, site not specified; N17.9 Acute kidney failure, unspecified; Z20.822 Contact with and (suspected) exposure to COVID-19; D50.9 Iron deficiency anemia, unspecified; I25.10 Atherosclerotic heart disease of native coronary artery without angina pectoris; K21.9 Gastro-esophageal reflux disease without esophagitis; I10 Essential (primary) hypertension; F41.8 Other specified anxiety disorders; E78.5 Hyperlipidemia, unspecified; Z96.652 Presence of left artificial knee joint; I25.2 Old myocardial infarction; Z95.1 Presence of aortocoronary bypass graft; Z95.810 Presence of automatic (implantable) cardiac defibrillator; Z79.899 Other long term (current) drug therapy; Z79.82 Long term (current) use of aspirin; Z98.890 Other specified postprocedural states; Z85.51 Personal history of malignant neoplasm of bladder; Z87.891 Personal history of nicotine dependence; I28.8 Other diseases of pulmonary vessels
CPT/HCPCS: 36415; 70498; 71045; 80048; 80053; 81003; 81015; 82565; 83605; 83690; 83735; 84484; 85025; 87040; 87086; 93005; 93010; 94664; 94760; 96372; 96374; 96375; 96376; C1768; G0378; J0171; J0360; J0690; J0696; J1100; J1642; J1644; J2270; J2405; J2704; J2710; J2720; J3010; J3490; J7050; Q9967; S0020; U0003; U0005

== ENCOUNTER 2023-04-12 09:34 | Inpatient (IN) | payer MEDICARE ==
[2023-04-12] MEDS ORDERED: HYDROcodone/Acetaminophen 5/325 mg Tablet ONE (10:43)
[2023-04-12] MEDS ORDERED: Nitroglycerin 2% Ointment 1 INCH/1 GM Packet ONE (10:43)
[2023-04-12 11:07] LABS: #Eosinphils 0.2 thou/uL (0.0-0.7); #Monocytes 0.4 thou/uL (0.11-0.59); #Neutrophils 3.4 thou/uL (1.40-6.50); %Basophils 0.7 % (0.0-1.0); %Eosinophils 3.9 % (0.0-10.0); %Lymphocytes 25.4 % (21.0-51.0); %Neutrophils 62.4 % (42.0-75.0); Hematocrit 31.4 % (42.0-52.0); Hemoglobin 9.7 g/dL (14.0-18.0); Mean Corpuscular HGB CONC 30.9 g/dL (32.0-36.0); Mean Corpuscular Hemoglobin 27.1 pg (27.0-31.0); Mean Corpuscular Volume 87.7 fl (78.0-98.0); Mean Platelet Volume 9.8 fL (7.4-10.4); Platelet Count 278 10x3/uL (130-400); RBC Distribution Width 15.7 % (11.5-14.5); Red Blood Cell (RBC) Count 3.58 mill/uL (4.70-6.10); White Blood Cell (WBC) Count 5.4 10x3/uL (4.8-10.8)
[2023-04-12 11:30] LABS: ALT (SGPT) 18 U/L (8-55); AST (SGOT) 20 U/L (5-34); Albumin 3.4 g/dL (3.4-4.8); Alkaline Phosphatase 73 U/L (40-110); Anion Gap 13 mmol/L (10-20); BUN (Urea Nitrogen) 16 mg/dL (8.4-25.7); Bilirubin, Total 0.4 mg/dL (0.2-1.2); Calc. Creatinine Clearance 0 mL/min (70-130); Calcium 8.8 mg/dL (7.8-10.44); Carbon Dioxide 25 mmol/L (23-31); Chloride 104 mmol/L (98-107); Estimated GFR 81; Globulin 2.3 g/dL (2.4-3.5); Glucose 96 mg/dL (83-110); Potassium 4.7 mmol/L (3.5-5.1); Protein, Total 5.7 g/dL (5.8-8.1); Sodium 137 mmol/L (136-145)
[2023-04-12 11:40] LABS: Troponin I 0.019 ng/mL (< 0.028)
[2023-04-12] MEDS ORDERED: Nitroglycerin 0.4 MG TAB (25 Tab Bottle) SL PRN (12:55)
[2023-04-12] MEDS ORDERED: Acetaminophen 325 MG TAB PO PRN (13:25)
[2023-04-12] MEDS ORDERED: Ondansetron PF 4 MG/2 ML Vial IVP PRN (13:25)
[2023-04-12 14:30] LABS: Troponin I Less than 0.010 ng/mL (< 0.028)
[2023-04-12] MEDS: Gabapentin 300 MG CAP PO SCH ×2 (17:13→22:23)
[2023-04-12 17:26] VITALS: BMI 27.3
[2023-04-12 17:52] LABS: Troponin I Less than 0.010 ng/mL (< 0.028)
[2023-04-12] MEDS ORDERED: Nitroglycerin 2% Ointment 1 INCH/1 GM Packet TOP SCH (20:45)
[2023-04-12] MEDS ORDERED: Morphine 2 MG/ML VIAL SLOW IVP PRN (21:10)
[2023-04-12] MEDS ORDERED: Sodium Chloride 0.9% 500 ML IV SCH (21:15)
[2023-04-12 21:37] LABS: Troponin I Less than 0.010 ng/mL (< 0.028)
[2023-04-12] MEDS: Aspirin 81 mg Enteric Coated Tablet PO SCH (22:23)
[2023-04-12] MEDS: Famotidine 20 MG TAB PO SCH (22:24)
[2023-04-12] MEDS: Senokot S 8.6-50 MG TAB PO SCH (22:26)
[2023-04-13 05:08] LABS: #Basophils 0.1 thou/uL (0.0-0.2); #Eosinphils 0.2 thou/uL (0.0-0.7); #Monocytes 0.4 thou/uL (0.11-0.59); #Neutrophils 2.9 thou/uL (1.40-6.50); %Eosinophils 4.9 % (0.0-10.0); %Lymphocytes 26.5 % (21.0-51.0); %Monocytes 7.4 % (0.0-10.0); %Neutrophils 59.4 % (42.0-75.0); Hemoglobin 10.5 g/dL (14.0-18.0); Mean Corpuscular HGB CONC 30.9 g/dL (32.0-36.0); Mean Corpuscular Volume 87.4 fl (78.0-98.0); Mean Platelet Volume 10.6 fL (7.4-10.4); Platelet Count 294 10x3/uL (130-400); RBC Distribution Width 15.9 % (11.5-14.5); Red Blood Cell (RBC) Count 3.89 mill/uL (4.70-6.10); White Blood Cell (WBC) Count 4.9 10x3/uL (4.8-10.8)
[2023-04-13 05:39] LABS: Anion Gap 9 mmol/L (10-20); BUN (Urea Nitrogen) 15 mg/dL (8.4-25.7); Calc. Creatinine Clearance 78 mL/min (70-130); Calcium 8.7 mg/dL (7.8-10.44); Carbon Dioxide 27 mmol/L (23-31); Chloride 105 mmol/L (98-107); Estimated GFR 81; Glucose 95 mg/dL (83-110); Potassium 4.1 mmol/L (3.5-5.1); Sodium 137 mmol/L (136-145)
[2023-04-13] MEDS: Oxybutynin ER 5 MG TAB PO SCH (08:35)
[2023-04-13] MEDS: Citalopram 20 MG TAB PO SCH (08:35)
[2023-04-13] MEDS: Gabapentin 300 MG CAP PO SCH ×2 (08:35→14:32)
[2023-04-13] MEDS: Polyethylene Glycol 3350 17 GM Packet PO SCH (08:36)
[2023-04-13] MEDS: Senokot S 8.6-50 MG TAB PO SCH (08:36)
[2023-04-13] MEDS: Aspirin 81 mg Enteric Coated Tablet PO SCH ×2 (08:36→21:54)
[2023-04-13] MEDS: Famotidine 20 MG TAB PO SCH (08:36)
[2023-04-13] MEDS ORDERED: Regadenoson 0.4 MG/5 ML SYRINGE ONE (08:54)
[2023-04-13] MEDS: Calcium Carbonate 500 MG TAB PO SCH (17:27)
[2023-04-13] MEDS: Senokot 8.6 MG TAB PO SCH ×2 (17:27→23:33)
[2023-04-13] MEDS: Melatonin 3 MG TAB PO SCH (21:53)
[2023-04-13] MEDS: Docusate 100 MG CAP PO SCH (21:54)
[2023-04-13] MEDS: Oxybutynin 5 MG TAB PO SCH (21:54)
[2023-04-13] MEDS: Baclofen 10 MG TAB PO SCH (21:54)
[2023-04-13] MEDS: Bisacodyl 10 MG SUPP PR SCH (23:32)
[2023-04-14] MEDS: Gabapentin 300 MG CAP PO SCH ×4 (02:22→21:18)
[2023-04-14] MEDS: Senokot 8.6 MG TAB PO SCH ×4 (09:43→19:23)
[2023-04-14] MEDS: Polyethylene Glycol 3350 17 GM Packet PO SCH (09:43)
[2023-04-14] MEDS: Oxybutynin 5 MG TAB PO SCH ×2 (09:44→21:18)
[2023-04-14] MEDS: Baclofen 10 MG TAB PO SCH ×3 (09:44→21:17)
[2023-04-14] MEDS: Calcium Carbonate 500 MG TAB PO SCH ×3 (09:44→16:20)
[2023-04-14] MEDS: Docusate 100 MG CAP PO SCH ×2 (09:44→21:18)
[2023-04-14] MEDS: Aspirin 81 mg Enteric Coated Tablet PO SCH ×2 (09:44→21:18)
[2023-04-14] MEDS: Oxybutynin ER 5 MG TAB PO SCH (09:44)
[2023-04-14] MEDS: Citalopram 20 MG TAB PO SCH (09:44)
[2023-04-14] MEDS: Amlodipine 5 MG TAB PO SCH (09:44)
[2023-04-14] MEDS: HYDROcodone/Acetaminophen 10/325 mg Tablet PO PRN (09:46)
[2023-04-14] MEDS ORDERED: Furosemide 40 MG/4 ML VIAL SLOW IVP SCH (14:30)
[2023-04-14] MEDS: Bisacodyl 10 MG SUPP PR SCH (19:23)
[2023-04-14] MEDS: Melatonin 3 MG TAB PO SCH (21:18)
[2023-04-15] MEDS ORDERED: Furosemide 40 MG TAB PO SCH (07:30)
[2023-04-15] MEDS: Aspirin 81 mg Enteric Coated Tablet PO SCH (08:31)
[2023-04-15] MEDS: Polyethylene Glycol 3350 17 GM Packet PO SCH (08:31)
[2023-04-15] MEDS: Gabapentin 300 MG CAP PO SCH ×2 (08:32→15:12)
[2023-04-15] MEDS: Senokot 8.6 MG TAB PO SCH ×2 (08:32→11:26)
[2023-04-15] MEDS: Oxybutynin 5 MG TAB PO SCH (08:32)
[2023-04-15] MEDS: Calcium Carbonate 500 MG TAB PO SCH ×3 (08:32→15:11)
[2023-04-15] MEDS: Citalopram 20 MG TAB PO SCH (08:32)
[2023-04-15] MEDS: Baclofen 10 MG TAB PO SCH ×2 (08:32→15:12)
[2023-04-15] MEDS: Oxybutynin ER 5 MG TAB PO SCH (08:32)
[2023-04-15] MEDS: Docusate 100 MG CAP PO SCH (08:33)
[2023-04-15] MEDS: Amlodipine 5 MG TAB PO SCH (08:33)
[2023-04-15] MEDS: HYDROcodone/Acetaminophen 10/325 mg Tablet PO PRN ×2 (08:35→15:12)
[2023-04-15 16:02] VITALS: BP 150/67; TEMP 98.8
== END 2023-04-15 16:55 | DRG 313 ==
LOC: ERS 09:34 → ERHOLD 12:48 → 2NO 16:51 → OBSVTOIN 04-14 08:37
PROVIDERS: ADMIT Family Medicine; ATTEND Family Medicine
DX: R07.89 Other chest pain (principal); G83.89 Other specified paralytic syndromes; I25.10 Atherosclerotic heart disease of native coronary artery without angina pectoris; I10 Essential (primary) hypertension; K21.9 Gastro-esophageal reflux disease without esophagitis; E78.5 Hyperlipidemia, unspecified; F41.9 Anxiety disorder, unspecified; Z96.652 Presence of left artificial knee joint; G62.9 Polyneuropathy, unspecified; C67.9 Malignant neoplasm of bladder, unspecified; Z79.899 Other long term (current) drug therapy; Z79.82 Long term (current) use of aspirin; Z95.1 Presence of aortocoronary bypass graft; Z95.810 Presence of automatic (implantable) cardiac defibrillator; Z98.890 Other specified postprocedural states; Z87.891 Personal history of nicotine dependence
CPT/HCPCS: 36415; 71045; 78452; 80053; 83880; 85025; 93005; 93010; 93017; 96372; 96374; A9500; G0378; J1650; J2272; J2785; J7030

== ENCOUNTER 2023-04-16 09:09 | Inpatient (IN) | payer MEDICARE ==
[2023-04-16] MEDS ORDERED: Acetaminophen 500 MG TAB ONE (09:32)
[2023-04-16] MEDS ORDERED: Azithromycin 500 MG VIAL ONE (09:32)
[2023-04-16] MEDS ORDERED: cefTRIAXone (ROCEPHIN) 1 GM VIAL ONE (09:32)
[2023-04-16 09:42] LABS: #Monocytes 0.4 thou/uL (0.11-0.59); #Neutrophils 11.5 thou/uL (1.40-6.50); %Basophils 0.3 % (0.0-1.0); %Eosinophils 0.1 % (0.0-10.0); %Lymphocytes 6.1 % (21.0-51.0); %Monocytes 2.7 % (0.0-10.0); %Neutrophils 90.4 % (42.0-75.0); Hematocrit 36.8 % (42.0-52.0); Hemoglobin 11.9 g/dL (14.0-18.0); Mean Corpuscular HGB CONC 32.3 g/dL (32.0-36.0); Mean Platelet Volume 10.5 fL (7.4-10.4); Platelet Count 306 10x3/uL (130-400); RBC Distribution Width 15.7 % (11.5-14.5); White Blood Cell (WBC) Count 12.7 10x3/uL (4.8-10.8)
[2023-04-16] MEDS ORDERED: Acetaminophen 650 MG Suppository ONE (09:42)
[2023-04-16 09:45] LABS: Mean Corpuscular Volume 83.6 fl (78.0-98.0)
[2023-04-16] MEDS ORDERED: Iopamidol-370 76% 500 ML MDV (1 ML CHARGE) ONE (10:12)
[2023-04-16 10:14] LABS: ALT (SGPT) 16 U/L (8-55); AST (SGOT) 16 U/L (5-34); Alkaline Phosphatase 84 U/L (40-110); Anion Gap 16 mmol/L (10-20); BUN (Urea Nitrogen) 15 mg/dL (8.4-25.7); Bilirubin, Total 0.6 mg/dL (0.2-1.2); Calc. Creatinine Clearance 0 mL/min (70-130); Calcium 9.5 mg/dL (7.8-10.44); Carbon Dioxide 21 mmol/L (23-31); Chloride 103 mmol/L (98-107); Estimated GFR 86; Globulin 2.6 g/dL (2.4-3.5); Glucose 131 mg/dL (83-110); Lipase 35 U/L (8-78); Potassium 4.4 mmol/L (3.5-5.1); Protein, Total 6.6 g/dL (5.8-8.1); Sodium 136 mmol/L (136-145); Troponin I Less than 0.010 ng/mL (< 0.028)
[2023-04-16 10:30] LABS: Bacteria/HPF None Seen HPF (None Seen); Bilirubin Negative (Negative); Blood, Urine 1+ (Negative); CAUTI Indications for Culture Fever or rigors; Clarity Clear (Clear); Glucose, Urine (Dipstick) Normal (Negative); Ketone, Urine Negative (Negative); Leukocyte 25 Leu/uL (Negative); Nitrite Negative (Negative); Protein, Urine (Dipstick) 20 mg/dL (Neg-Trace); RBC/HPF 21-50 HPF (0-3); Specific Gravity, Urine 1.028 (1.002-1.036); Squamous Epithelial None Seen HPF (0-3); WBC/HPF 0-3 HPF (0-3); pH, Urine 6.5 (5.0-9.0)
[2023-04-16 10:33] LABS: Urine Culture Reflex No No
[2023-04-16 10:36] LABS: SARS-CoV-2 NAA Rapid Test Not Detected (NotDetected)
[2023-04-16] MEDS ORDERED: Communication Order-Pharmacy FS SCH (11:08)
[2023-04-16] MEDS ORDERED: Acetaminophen 325 MG TAB PO PRN (11:08)
[2023-04-16] MEDS ORDERED: Loperamide HCl 2 MG CAP PO PRN ×2 (11:08)
[2023-04-16] MEDS ORDERED: Senokot S 8.6-50 MG TAB PO PRN (11:08)
[2023-04-16] MEDS ORDERED: Ondansetron ODT 4 MG TAB PO PRN (11:08)
[2023-04-16] MEDS ORDERED: Acetaminophen 650 MG Suppository PR PRN (11:08)
[2023-04-16] MEDS ORDERED: Bisacodyl 5 MG TAB PO PRN (11:08)
[2023-04-16] MEDS ORDERED: Vancomycin 1 GM/200 ML (FROZEN) BAG ONE (11:20)
[2023-04-16] MEDS ORDERED: Ketorolac Tromethamine 30 MG/ML VIAL ONE (11:20)
[2023-04-16] MEDS ORDERED: VANCOMYCIN 1.25 GM/250 ML BAG 1.25 GM in Premix Bag 1 BAG IVPB SCH (13:15)
[2023-04-16 13:43] VITALS: BMI 28.4
[2023-04-16 14:26] LABS: Vancomycin, Trough Less than 1.1 ug/mL
[2023-04-16] MEDS: Lactated Ringer's 1,000 ML IV SCH ×2 (15:14→21:25)
[2023-04-16] MEDS: LevoFLOXacin 750 mg/D5W 750 MG in Premix Bag 1 BAG IVPB SCH (15:15)
[2023-04-16] MEDS: Simethicone Chewable 80 MG TAB PO SCH ×2 (15:15→20:08)
[2023-04-16] MEDS: Cefepime 2 GM in Sodium Chloride 0.9% 100 ML IVPB SCH (15:15)
[2023-04-16] MEDS: Gabapentin 300 MG CAP PO SCH ×2 (15:15→20:07)
[2023-04-16 16:27] LABS: Legionella Urinary Ag Negative (Negative); Strep pneumo Urine Ag NEGATIVE (NEGATIVE)
[2023-04-16] MEDS: Ondansetron PF 4 MG/2 ML Vial IVP PRN (17:23)
[2023-04-16] MEDS: HYDROcodone/Acetaminophen 10/325 mg Tablet PO PRN (18:20)
[2023-04-16] MEDS: Melatonin 3 MG TAB PO SCH (20:08)
[2023-04-16] MEDS: Oxybutynin 5 MG TAB PO SCH (20:08)
[2023-04-16] MEDS: Famotidine 20 MG TAB PO SCH (20:08)
[2023-04-16] MEDS: Aspirin 81 mg Enteric Coated Tablet PO SCH (20:08)
[2023-04-16] MEDS: Baclofen 10 MG TAB PO SCH (20:08)
[2023-04-17] MEDS: Vancomycin 1 GM in Premix Bag 1 BAG IVPB SCH ×2 (00:11→13:42)
[2023-04-17] MEDS: Lactated Ringer's 1,000 ML IV SCH (00:16)
[2023-04-17] MEDS: Cefepime 2 GM in Sodium Chloride 0.9% 100 ML IVPB SCH ×2 (02:49→13:41)
[2023-04-17 06:55] LABS: #Eosinphils 0.1 thou/uL (0.0-0.7); #Monocytes 0.4 thou/uL (0.11-0.59); #Neutrophils 6.5 thou/uL (1.40-6.50); %Basophils 0.4 % (0.0-1.0); %Eosinophils 1.3 % (0.0-10.0); %Lymphocytes 15.2 % (21.0-51.0); %Neutrophils 77.7 % (42.0-75.0); Hematocrit 31.3 % (42.0-52.0); Hemoglobin 9.6 g/dL (14.0-18.0); Mean Corpuscular HGB CONC 30.7 g/dL (32.0-36.0); Mean Corpuscular Hemoglobin 27.1 pg (27.0-31.0); Mean Platelet Volume 10.4 fL (7.4-10.4); Platelet Count 240 10x3/uL (130-400); RBC Distribution Width 15.9 % (11.5-14.5); Red Blood Cell (RBC) Count 3.54 mill/uL (4.70-6.10); White Blood Cell (WBC) Count 8.4 10x3/uL (4.8-10.8)
[2023-04-17 07:01] LABS: Mean Corpuscular Volume 88.4 fl (78.0-98.0)
[2023-04-17 07:26] LABS: Anion Gap 13 mmol/L (10-20); BUN (Urea Nitrogen) 17 mg/dL (8.4-25.7); Calc. Creatinine Clearance 86 mL/min (70-130); Calcium 8.9 mg/dL (7.8-10.44); Carbon Dioxide 22 mmol/L (23-31); Chloride 104 mmol/L (98-107); Estimated GFR 86; Glucose 87 mg/dL (83-110); Potassium 4.3 mmol/L (3.5-5.1); Sodium 135 mmol/L (136-145)
[2023-04-17] MEDS: HYDROcodone/Acetaminophen 10/325 mg Tablet PO PRN ×2 (08:13→16:06)
[2023-04-17] MEDS: Gabapentin 300 MG CAP PO SCH ×3 (08:14→20:20)
[2023-04-17] MEDS: Aspirin 81 mg Enteric Coated Tablet PO SCH ×2 (08:14→20:19)
[2023-04-17] MEDS: Oxybutynin 5 MG TAB PO SCH ×2 (08:14→20:20)
[2023-04-17] MEDS: Atenolol 25 MG TAB PO SCH (08:14)
[2023-04-17] MEDS: Baclofen 10 MG TAB PO SCH ×3 (08:14→20:20)
[2023-04-17] MEDS: Citalopram 20 MG TAB PO SCH (08:15)
[2023-04-17] MEDS: Polyethylene Glycol 3350 17 GM Packet PO SCH (08:16)
[2023-04-17] MEDS: Famotidine 20 MG TAB PO SCH (08:16)
[2023-04-17] MEDS: Simethicone Chewable 80 MG TAB PO SCH ×3 (08:17→20:20)
[2023-04-17] MEDS: LevoFLOXacin 750 mg/D5W 750 MG in Premix Bag 1 BAG IVPB SCH (14:25)
[2023-04-17] MEDS: Melatonin 3 MG TAB PO SCH (20:20)
[2023-04-17 23:25] LABS: Vancomycin, Trough 17.9 ug/mL
[2023-04-18] MEDS: Vancomycin 1 GM in Premix Bag 1 BAG IVPB SCH ×2 (01:01→12:33)
[2023-04-18] MEDS: Cefepime 2 GM in Sodium Chloride 0.9% 100 ML IVPB SCH ×2 (02:41→16:18)
[2023-04-18 07:48] LABS: #Eosinphils 0.1 thou/uL (0.0-0.7); #Monocytes 0.5 thou/uL (0.11-0.59); #Neutrophils 4.7 thou/uL (1.40-6.50); %Basophils 0.6 % (0.0-1.0); %Eosinophils 1.2 % (0.0-10.0); %Lymphocytes 18.3 % (21.0-51.0); %Monocytes 6.9 % (0.0-10.0); %Neutrophils 72.7 % (42.0-75.0); Hematocrit 31.3 % (42.0-52.0); Hemoglobin 9.9 g/dL (14.0-18.0); Mean Corpuscular HGB CONC 31.6 g/dL (32.0-36.0); Mean Corpuscular Hemoglobin 27.2 pg (27.0-31.0); Platelet Count 231 10x3/uL (130-400); RBC Distribution Width 15.4 % (11.5-14.5); Red Blood Cell (RBC) Count 3.64 mill/uL (4.70-6.10); White Blood Cell (WBC) Count 6.5 10x3/uL (4.8-10.8)
[2023-04-18 08:02] LABS: Anion Gap 10 mmol/L (10-20); BUN (Urea Nitrogen) 13 mg/dL (8.4-25.7); Calc. Creatinine Clearance 99 mL/min (70-130); Calcium 8.8 mg/dL (7.8-10.44); Carbon Dioxide 25 mmol/L (23-31); Chloride 105 mmol/L (98-107); Estimated GFR 89; Glucose 97 mg/dL (83-110); Sodium 136 mmol/L (136-145)
[2023-04-18] MEDS ORDERED: Pantoprazole 40 MG GRANULES PACKET PO SCH (09:00)
[2023-04-18] MEDS: Polyethylene Glycol 3350 17 GM Packet PO SCH (09:24)
[2023-04-18] MEDS: Aspirin 81 mg Enteric Coated Tablet PO SCH ×2 (09:25→21:24)
[2023-04-18] MEDS: Citalopram 20 MG TAB PO SCH (09:25)
[2023-04-18] MEDS: Gabapentin 300 MG CAP PO SCH ×3 (09:25→21:21)
[2023-04-18] MEDS: Oxybutynin 5 MG TAB PO SCH ×2 (09:25→21:23)
[2023-04-18] MEDS: Baclofen 10 MG TAB PO SCH ×3 (09:25→21:24)
[2023-04-18] MEDS: Atenolol 25 MG TAB PO SCH (09:26)
[2023-04-18] MEDS: Simethicone Chewable 80 MG TAB PO SCH ×3 (09:27→21:24)
[2023-04-18] MEDS: Lansoprazole 15 MG/5 ML (BATCHED)UDCUP PER TUBE SCH (10:31)
[2023-04-18] MEDS: LevoFLOXacin 750 mg/D5W 750 MG in Premix Bag 1 BAG IVPB SCH (13:48)
[2023-04-18] MEDS ORDERED: Ipratropium/Albuterol 3 ML NEB NEB PRN (16:02)
[2023-04-18] MEDS ORDERED: Ipratropium/Albuterol 3 ML NEB NEB SCH (16:15)
[2023-04-18] MEDS: Melatonin 3 MG TAB PO SCH (21:23)
[2023-04-19] MEDS: Cefepime 2 GM in Sodium Chloride 0.9% 100 ML IVPB SCH ×2 (03:10→15:31)
[2023-04-19 07:11] LABS: #Eosinphils 0.1 thou/uL (0.0-0.7); #Monocytes 0.4 thou/uL (0.11-0.59); #Neutrophils 3.5 thou/uL (1.40-6.50); %Basophils 0.6 % (0.0-1.0); %Eosinophils 2.2 % (0.0-10.0); %Lymphocytes 16.6 % (21.0-51.0); %Monocytes 7.4 % (0.0-10.0); %Neutrophils 72.4 % (42.0-75.0); Hematocrit 33.3 % (42.0-52.0); Hemoglobin 10.4 g/dL (14.0-18.0); Mean Corpuscular HGB CONC 31.2 g/dL (32.0-36.0); Mean Corpuscular Hemoglobin 27.1 pg (27.0-31.0); Mean Corpuscular Volume 86.7 fl (78.0-98.0); Mean Platelet Volume 10.5 fL (7.4-10.4); Platelet Count 250 10x3/uL (130-400); RBC Distribution Width 15.3 % (11.5-14.5); Red Blood Cell (RBC) Count 3.84 mill/uL (4.70-6.10); White Blood Cell (WBC) Count 4.9 10x3/uL (4.8-10.8)
[2023-04-19 07:33] LABS: Anion Gap 9 mmol/L (10-20); BUN (Urea Nitrogen) 11 mg/dL (8.4-25.7); Calc. Creatinine Clearance 100 mL/min (70-130); Calcium 8.9 mg/dL (7.8-10.44); Carbon Dioxide 24 mmol/L (23-31); Chloride 106 mmol/L (98-107); Estimated GFR 90; Glucose 103 mg/dL (83-110); Potassium 3.8 mmol/L (3.5-5.1); Sodium 135 mmol/L (136-145)
[2023-04-19] MEDS: HYDROcodone/Acetaminophen 10/325 mg Tablet PO PRN ×2 (08:37→20:33)
[2023-04-19] MEDS: Lansoprazole 15 MG/5 ML (BATCHED)UDCUP PER TUBE SCH (08:38)
[2023-04-19] MEDS: Gabapentin 300 MG CAP PO SCH ×3 (08:39→20:23)
[2023-04-19] MEDS: Oxybutynin 5 MG TAB PO SCH ×2 (08:39→20:24)
[2023-04-19] MEDS: Polyethylene Glycol 3350 17 GM Packet PO SCH (08:39)
[2023-04-19] MEDS: Aspirin 81 mg Enteric Coated Tablet PO SCH ×2 (08:40→20:23)
[2023-04-19] MEDS: Citalopram 20 MG TAB PO SCH (08:40)
[2023-04-19] MEDS: Simethicone Chewable 80 MG TAB PO SCH ×3 (08:40→20:23)
[2023-04-19] MEDS: Atenolol 25 MG TAB PO SCH (08:40)
[2023-04-19] MEDS: Baclofen 10 MG TAB PO SCH ×3 (08:40→20:24)
[2023-04-19] MEDS: LevoFLOXacin 750 mg/D5W 750 MG in Premix Bag 1 BAG IVPB SCH (14:34)
[2023-04-19] MEDS: Melatonin 3 MG TAB PO SCH (20:24)
[2023-04-20] MEDS: Cefepime 2 GM in Sodium Chloride 0.9% 100 ML IVPB SCH ×2 (03:35→14:51)
[2023-04-20] MEDS: HYDROcodone/Acetaminophen 10/325 mg Tablet PO PRN ×2 (05:44→21:17)
[2023-04-20 06:16] LABS: #Eosinphils 0.2 thou/uL (0.0-0.7); #Monocytes 0.4 thou/uL (0.11-0.59); #Neutrophils 2.1 thou/uL (1.40-6.50); %Basophils 0.8 % (0.0-1.0); %Lymphocytes 30.8 % (21.0-51.0); %Monocytes 9.1 % (0.0-10.0); %Neutrophils 53.8 % (42.0-75.0); Hematocrit 32.7 % (42.0-52.0); Hemoglobin 10.2 g/dL (14.0-18.0); Mean Corpuscular HGB CONC 31.2 g/dL (32.0-36.0); Mean Corpuscular Hemoglobin 27.1 pg (27.0-31.0); Mean Corpuscular Volume 86.7 fl (78.0-98.0); Mean Platelet Volume 9.9 fL (7.4-10.4); Platelet Count 237 10x3/uL (130-400); RBC Distribution Width 15.1 % (11.5-14.5); Red Blood Cell (RBC) Count 3.77 mill/uL (4.70-6.10); White Blood Cell (WBC) Count 3.8 10x3/uL (4.8-10.8)
[2023-04-20 06:36] LABS: Anion Gap 11 mmol/L (10-20); BUN (Urea Nitrogen) 12 mg/dL (8.4-25.7); Calc. Creatinine Clearance 90 mL/min (70-130); Calcium 8.8 mg/dL (7.8-10.44); Carbon Dioxide 25 mmol/L (23-31); Chloride 105 mmol/L (98-107); Estimated GFR 87; Glucose 97 mg/dL (83-110); Potassium 4.2 mmol/L (3.5-5.1); Sodium 137 mmol/L (136-145)
[2023-04-20] MEDS: Ondansetron PF 4 MG/2 ML Vial IVP PRN (09:02)
[2023-04-20] MEDS: Polyethylene Glycol 3350 17 GM Packet PO SCH (09:04)
[2023-04-20] MEDS: Aspirin 81 mg Enteric Coated Tablet PO SCH ×2 (09:05→21:17)
[2023-04-20] MEDS: Atenolol 25 MG TAB PO SCH (09:05)
[2023-04-20] MEDS: Citalopram 20 MG TAB PO SCH (09:05)
[2023-04-20] MEDS: Lansoprazole 15 MG/5 ML (BATCHED)UDCUP PER TUBE SCH (09:05)
[2023-04-20] MEDS: Gabapentin 300 MG CAP PO SCH ×3 (09:06→21:19)
[2023-04-20] MEDS: Baclofen 10 MG TAB PO SCH ×3 (09:07→21:18)
[2023-04-20] MEDS: Oxybutynin 5 MG TAB PO SCH ×2 (09:07→21:18)
[2023-04-20] MEDS: Simethicone Chewable 80 MG TAB PO SCH ×3 (09:07→21:17)
[2023-04-20] MEDS: LevoFLOXacin 750 mg/D5W 750 MG in Premix Bag 1 BAG IVPB SCH (13:14)
[2023-04-20] MEDS: Melatonin 3 MG TAB PO SCH (21:18)
[2023-04-21] MEDS: Cefepime 2 GM in Sodium Chloride 0.9% 100 ML IVPB SCH ×2 (02:16→14:23)
[2023-04-21] MEDS: HYDROcodone/Acetaminophen 10/325 mg Tablet PO PRN (02:16)
[2023-04-21 07:03] LABS: #Basophils 0.1 thou/uL (0.0-0.2); #Eosinphils 0.3 thou/uL (0.0-0.7); #Monocytes 0.5 thou/uL (0.11-0.59); #Neutrophils 2.2 thou/uL (1.40-6.50); %Basophils 1.1 % (0.0-1.0); %Eosinophils 5.7 % (0.0-10.0); %Lymphocytes 31.4 % (21.0-51.0); %Neutrophils 49.1 % (42.0-75.0); Hematocrit 34.1 % (42.0-52.0); Hemoglobin 10.6 g/dL (14.0-18.0); Mean Corpuscular HGB CONC 31.1 g/dL (32.0-36.0); Mean Platelet Volume 9.9 fL (7.4-10.4); Platelet Count 208 10x3/uL (130-400); RBC Distribution Width 14.9 % (11.5-14.5); Red Blood Cell (RBC) Count 3.92 mill/uL (4.70-6.10); White Blood Cell (WBC) Count 4.4 10x3/uL (4.8-10.8)
[2023-04-21 07:25] LABS: Anion Gap 10 mmol/L (10-20); BUN (Urea Nitrogen) 11 mg/dL (8.4-25.7); Calc. Creatinine Clearance 96 mL/min (70-130); Calcium 9.1 mg/dL (7.8-10.44); Carbon Dioxide 25 mmol/L (23-31); Chloride 104 mmol/L (98-107); Estimated GFR 88; Glucose 90 mg/dL (83-110); Potassium 4.3 mmol/L (3.5-5.1); Sodium 135 mmol/L (136-145)
[2023-04-21] MEDS: Aspirin 81 mg Enteric Coated Tablet PO SCH ×2 (08:04→21:40)
[2023-04-21] MEDS: Lansoprazole 15 MG/5 ML (BATCHED)UDCUP PER TUBE SCH (08:04)
[2023-04-21] MEDS: Polyethylene Glycol 3350 17 GM Packet PO SCH (08:05)
[2023-04-21] MEDS: Oxybutynin 5 MG TAB PO SCH ×2 (08:05→21:40)
[2023-04-21] MEDS: Baclofen 10 MG TAB PO SCH ×3 (08:05→21:41)
[2023-04-21] MEDS: Gabapentin 300 MG CAP PO SCH ×3 (08:05→21:40)
[2023-04-21] MEDS: Citalopram 20 MG TAB PO SCH (08:06)
[2023-04-21] MEDS: Atenolol 25 MG TAB PO SCH (08:06)
[2023-04-21] MEDS: Simethicone Chewable 80 MG TAB PO SCH ×3 (08:14→22:25)
[2023-04-21] MEDS: LevoFLOXacin 750 mg/D5W 750 MG in Premix Bag 1 BAG IVPB SCH (14:22)
[2023-04-21] MEDS: Melatonin 3 MG TAB PO SCH (21:40)
[2023-04-22] MEDS: Cefepime 2 GM in Sodium Chloride 0.9% 100 ML IVPB SCH ×2 (03:50→16:06)
[2023-04-22 06:22] LABS: #Eosinphils 0.2 thou/uL (0.0-0.7); #Monocytes 0.4 thou/uL (0.11-0.59); %Basophils 1.1 % (0.0-1.0); %Eosinophils 4.2 % (0.0-10.0); %Lymphocytes 32.1 % (21.0-51.0); %Monocytes 9.8 % (0.0-10.0); %Neutrophils 52.5 % (42.0-75.0); Hematocrit 33.1 % (42.0-52.0); Hemoglobin 10.4 g/dL (14.0-18.0); Mean Corpuscular HGB CONC 31.4 g/dL (32.0-36.0); Mean Corpuscular Hemoglobin 26.9 pg (27.0-31.0); Mean Corpuscular Volume 85.8 fl (78.0-98.0); Mean Platelet Volume 10.2 fL (7.4-10.4); Platelet Count 204 10x3/uL (130-400); RBC Distribution Width 14.9 % (11.5-14.5); Red Blood Cell (RBC) Count 3.86 mill/uL (4.70-6.10); White Blood Cell (WBC) Count 3.8 10x3/uL (4.8-10.8)
[2023-04-22 06:43] LABS: Anion Gap 11 mmol/L (10-20); BUN (Urea Nitrogen) 16 mg/dL (8.4-25.7); Calc. Creatinine Clearance 95 mL/min (70-130); Carbon Dioxide 27 mmol/L (23-31); Chloride 104 mmol/L (98-107); Estimated GFR 88; Glucose 98 mg/dL (83-110); Potassium 4.1 mmol/L (3.5-5.1); Sodium 138 mmol/L (136-145)
[2023-04-22] MEDS: Atenolol 25 MG TAB PO SCH (08:40)
[2023-04-22] MEDS: Polyethylene Glycol 3350 17 GM Packet PO SCH (08:41)
[2023-04-22] MEDS: Oxybutynin 5 MG TAB PO SCH ×2 (08:42→21:18)
[2023-04-22] MEDS: Baclofen 10 MG TAB PO SCH ×3 (08:42→21:17)
[2023-04-22] MEDS: Gabapentin 300 MG CAP PO SCH ×3 (08:42→21:17)
[2023-04-22] MEDS: Citalopram 20 MG TAB PO SCH (08:42)
[2023-04-22] MEDS: Aspirin 81 mg Enteric Coated Tablet PO SCH ×2 (08:43→21:18)
[2023-04-22] MEDS: Simethicone Chewable 80 MG TAB PO SCH ×3 (10:14→21:18)
[2023-04-22] MEDS: HYDROcodone/Acetaminophen 10/325 mg Tablet PO PRN ×3 (10:14→21:19)
[2023-04-22] MEDS: LevoFLOXacin 750 mg/D5W 750 MG in Premix Bag 1 BAG IVPB SCH (14:14)
[2023-04-22] MEDS: Lansoprazole 15 MG/5 ML (BATCHED)UDCUP PER TUBE SCH (15:17)
[2023-04-22] MEDS: Melatonin 3 MG TAB PO SCH (21:18)
[2023-04-23] MEDS: Cefepime 2 GM in Sodium Chloride 0.9% 100 ML IVPB SCH ×2 (02:53→15:02)
[2023-04-23 06:14] LABS: #Basophils 0.1 thou/uL (0.0-0.2); #Eosinphils 0.2 thou/uL (0.0-0.7); #Monocytes 0.4 thou/uL (0.11-0.59); #Neutrophils 1.8 thou/uL (1.40-6.50); %Basophils 1.2 % (0.0-1.0); %Lymphocytes 39.4 % (21.0-51.0); %Monocytes 9.7 % (0.0-10.0); %Neutrophils 44.2 % (42.0-75.0); Hematocrit 37.5 % (42.0-52.0); Hemoglobin 11.3 g/dL (14.0-18.0); Mean Corpuscular HGB CONC 30.1 g/dL (32.0-36.0); Mean Corpuscular Hemoglobin 26.8 pg (27.0-31.0); Mean Platelet Volume 10.4 fL (7.4-10.4); Platelet Count 189 10x3/uL (130-400); RBC Distribution Width 14.9 % (11.5-14.5); Red Blood Cell (RBC) Count 4.22 mill/uL (4.70-6.10)
[2023-04-23 06:17] LABS: Mean Corpuscular Volume 88.9 fl (78.0-98.0)
[2023-04-23 06:38] LABS: Anion Gap 10 mmol/L (10-20); BUN (Urea Nitrogen) 16 mg/dL (8.4-25.7); Calc. Creatinine Clearance 93 mL/min (70-130); Calcium 9.4 mg/dL (7.8-10.44); Carbon Dioxide 27 mmol/L (23-31); Chloride 104 mmol/L (98-107); Estimated GFR 87; Glucose 92 mg/dL (83-110); Sodium 136 mmol/L (136-145)
[2023-04-23] MEDS: Gabapentin 300 MG CAP PO SCH ×3 (08:34→21:02)
[2023-04-23] MEDS: Citalopram 20 MG TAB PO SCH (08:35)
[2023-04-23] MEDS: Baclofen 10 MG TAB PO SCH ×3 (08:35→21:02)
[2023-04-23] MEDS: Oxybutynin 5 MG TAB PO SCH ×2 (08:35→21:03)
[2023-04-23] MEDS: Simethicone Chewable 80 MG TAB PO SCH ×3 (08:36→21:03)
[2023-04-23] MEDS: Atenolol 25 MG TAB PO SCH (08:36)
[2023-04-23] MEDS: Aspirin 81 mg Enteric Coated Tablet PO SCH ×2 (08:36→21:02)
[2023-04-23] MEDS: Lansoprazole 15 MG/5 ML (BATCHED)UDCUP PER TUBE SCH (08:36)
[2023-04-23] MEDS: Polyethylene Glycol 3350 17 GM Packet PO SCH (08:37)
[2023-04-23] MEDS: HYDROcodone/Acetaminophen 10/325 mg Tablet PO PRN ×3 (09:07→21:04)
[2023-04-23] MEDS: LevoFLOXacin 750 mg/D5W 750 MG in Premix Bag 1 BAG IVPB SCH (13:43)
[2023-04-23] MEDS: Melatonin 3 MG TAB PO SCH (21:03)
[2023-04-24 00:17] VITALS: TEMP 97.6
[2023-04-24] MEDS: Cefepime 2 GM in Sodium Chloride 0.9% 100 ML IVPB SCH ×2 (03:12→15:18)
[2023-04-24 06:51] LABS: #Eosinphils 0.2 thou/uL (0.0-0.7); #Monocytes 0.6 thou/uL (0.11-0.59); #Neutrophils 2.4 thou/uL (1.40-6.50); %Basophils 0.8 % (0.0-1.0); %Eosinophils 4.3 % (0.0-10.0); %Lymphocytes 32.6 % (21.0-51.0); %Monocytes 12.4 % (0.0-10.0); %Neutrophils 49.3 % (42.0-75.0); Hemoglobin 11.2 g/dL (14.0-18.0); Mean Corpuscular HGB CONC 30.3 g/dL (32.0-36.0); Mean Corpuscular Hemoglobin 26.8 pg (27.0-31.0); Mean Corpuscular Volume 88.5 fl (78.0-98.0); Mean Platelet Volume 10.6 fL (7.4-10.4); Platelet Count 173 10x3/uL (130-400); Red Blood Cell (RBC) Count 4.18 mill/uL (4.70-6.10); White Blood Cell (WBC) Count 4.8 10x3/uL (4.8-10.8)
[2023-04-24 07:30] LABS: Anion Gap 11 mmol/L (10-20); BUN (Urea Nitrogen) 16 mg/dL (8.4-25.7); Calc. Creatinine Clearance 95 mL/min (70-130); Calcium 9.4 mg/dL (7.8-10.44); Carbon Dioxide 28 mmol/L (23-31); Chloride 101 mmol/L (98-107); Estimated GFR 88; Glucose 86 mg/dL (83-110); Potassium 4.3 mmol/L (3.5-5.1); Sodium 136 mmol/L (136-145)
[2023-04-24] MEDS: Lansoprazole 15 MG/5 ML (BATCHED)UDCUP PER TUBE SCH (08:33)
[2023-04-24] MEDS: Aspirin 81 mg Enteric Coated Tablet PO SCH (08:34)
[2023-04-24] MEDS: Oxybutynin 5 MG TAB PO SCH (08:34)
[2023-04-24] MEDS: Polyethylene Glycol 3350 17 GM Packet PO SCH (08:34)
[2023-04-24] MEDS: Baclofen 10 MG TAB PO SCH ×2 (08:34→15:18)
[2023-04-24] MEDS: Citalopram 20 MG TAB PO SCH (08:34)
[2023-04-24] MEDS: Gabapentin 300 MG CAP PO SCH ×2 (08:34→15:19)
[2023-04-24] MEDS: Simethicone Chewable 80 MG TAB PO SCH ×2 (08:34→15:19)
[2023-04-24] MEDS: Atenolol 25 MG TAB PO SCH (08:34)
[2023-04-24] MEDS: LevoFLOXacin 750 mg/D5W 750 MG in Premix Bag 1 BAG IVPB SCH (15:18)
[2023-04-24 16:33] VITALS: BP 143/63
[2023-04-24] MEDS: HYDROcodone/Acetaminophen 10/325 mg Tablet PO PRN (18:18)
== END 2023-04-24 18:48 | DRG 871 ==
LOC: ERS 09:09 → T4-A 11:13
PROVIDERS: ADMIT Family Medicine; ATTEND Internal Medicine
DX: A41.9 Sepsis, unspecified organism (principal); G93.41 Metabolic encephalopathy; J96.01 Acute respiratory failure with hypoxia; J69.0 Pneumonitis due to inhalation of food and vomit; E87.1 Hypo-osmolality and hyponatremia; I25.10 Atherosclerotic heart disease of native coronary artery without angina pectoris; K21.9 Gastro-esophageal reflux disease without esophagitis; E78.5 Hyperlipidemia, unspecified; I10 Essential (primary) hypertension; I25.2 Old myocardial infarction; F41.9 Anxiety disorder, unspecified; Z20.822 Contact with and (suspected) exposure to COVID-19; R65.20 Severe sepsis without septic shock; G83.9 Paralytic syndrome, unspecified; Y95 Nosocomial condition; G89.29 Other chronic pain; M54.50 Low back pain, unspecified; Z96.652 Presence of left artificial knee joint; Z87.891 Personal history of nicotine dependence; Z79.82 Long term (current) use of aspirin; Z79.899 Other long term (current) drug therapy
CPT/HCPCS: 36415; 36416; 71045; 71275; 74230; 80048; 80202; 81001; 83605; 83690; 83880; 84145; 84484; 85025; 87040; 87081; 87086; 87449; 87633; 87899; 93005; 94640; 96361; 96365; 96367; 96375; 97139; J0456; J0692; J0696; J1650; J1885; J1956; J2405; J3370; J3370-JW; J3490; J7120; J7620; Q0162; Q9967

== ENCOUNTER 2023-05-04 17:17 | Outpatient (CLI) | payer MEDICARE | END 2023-05-04 17:18 | disposition home or self-care (01) | LOC: CT 17:17 | PROVIDERS: ATTEND Internal Medicine | DX: R41.0 Disorientation, unspecified (principal) | CPT/HCPCS: 70450 ==

== ENCOUNTER 2023-08-13 10:36 | Inpatient (IN) | payer MEDICARE ==
[~2023-08-13 10:36] MED LIST: Iopamidol-370 76% 500 ML MDV (1 ML CHARGE) ONE
[2023-08-13] MEDS ORDERED: Ondansetron PF 4 MG/2 ML Vial ONE (12:21)
[2023-08-13] MEDS ORDERED: Cefepime 2 GM VIAL ONE (12:21)
[2023-08-13] MEDS ORDERED: Sodium Chloride 0.9% 100 ML ONE (12:21)
[2023-08-13 12:40] LABS: #Eosinphils 0.1 thou/uL (0.0-0.7); #Monocytes 0.4 thou/uL (0.11-0.59); #Neutrophils 6.3 thou/uL (1.40-6.50); %Basophils 0.3 % (0.0-1.0); %Eosinophils 1.6 % (0.0-10.0); %Monocytes 4.7 % (0.0-10.0); Hematocrit 39.2 % (42.0-52.0); Hemoglobin 12.7 g/dL (14.0-18.0); Mean Corpuscular HGB CONC 32.4 g/dL (32.0-36.0); Mean Corpuscular Hemoglobin 25.6 pg (27.0-31.0); Mean Platelet Volume 9.9 fL (7.4-10.4); Platelet Count 245 10x3/uL (130-400); RBC Distribution Width 17.4 % (11.5-14.5); Red Blood Cell (RBC) Count 4.96 mill/uL (4.70-6.10)
[2023-08-13 13:09] LABS: Troponin I 0.013 ng/mL (< 0.028)
[2023-08-13 13:10] LABS: Bacteria/HPF 1+ HPF (None Seen); Bilirubin Negative (Negative); Blood, Urine Trace (Negative); CAUTI Indications for Culture Dysuria,urgency,freq; Calcium Oxalate Crystals 2+ HPF (None Seen); Clarity Turbid (Clear); Glucose, Urine (Dipstick) Normal (Negative); Ketone, Urine Negative (Negative); Leukocyte 500 Leu/uL (Negative); Nitrite Negative (Negative); Protein, Urine (Dipstick) 20 mg/dL (Neg-Trace); Specific Gravity, Urine 1.024 (1.002-1.036); Squamous Epithelial None Seen HPF (0-3); WBC/HPF Greater than 50 HPF (0-3); Yeast-Budding 1+ HPF (None Seen)
[2023-08-13 13:11] LABS: Urine Culture Reflex Yes Yes
[2023-08-13 13:11] LABS: ALT (SGPT) 11 U/L (8-55); AST (SGOT) 17 U/L (5-34); Albumin 3.7 g/dL (3.4-4.8); Alkaline Phosphatase 83 U/L (40-110); BUN (Urea Nitrogen) 14 mg/dL (8.4-25.7); Bilirubin, Total 0.7 mg/dL (0.2-1.2); Calc. Creatinine Clearance 0 mL/min (70-130); Calcium 8.9 mg/dL (7.8-10.44); Carbon Dioxide 19 mmol/L (23-31); Chloride 102 mmol/L (98-107); Estimated GFR 85; Globulin 3.3 g/dL (2.4-3.5); Glucose 86 mg/dL (83-110); Lipase 19 U/L (8-78); Magnesium 1.8 mg/dL (1.6-2.6); Potassium 4.7 mmol/L (3.5-5.1); Sodium 132 mmol/L (136-145)
[2023-08-13 13:14] LABS: Anion Gap 16 mmol/L (10-20)
[2023-08-13 13:31] LABS: INR-International Normal Ratio 1.1; Prothrombin Time 14.2 sec (12.0-14.7)
[2023-08-13 13:32] LABS: PTT 25.5 sec (22.9-36.1)
[2023-08-13 13:37] LABS: SARS-CoV-2 NAA Rapid Test Not Detected (NotDetected)
[2023-08-13] MEDS ORDERED: Senokot S 8.6-50 MG TAB PO PRN (14:18)
[2023-08-13] MEDS ORDERED: Bisacodyl 5 MG TAB PO PRN (14:18)
[2023-08-13] MEDS ORDERED: Bisacodyl 10 MG SUPP PR PRN (14:18)
[2023-08-13] MEDS ORDERED: Acetaminophen 325 MG TAB PO PRN (14:18)
[2023-08-13] MEDS ORDERED: cefTRIAXone\\ROCEPHIN 1 GM in Sodium Chloride 0.9% 100 ML IVPB SCH (14:30)
[2023-08-13] MEDS ORDERED: Vancomycin 1 GM/200 ML (FROZEN) BAG ONE (15:09)
[2023-08-13] MEDS ORDERED: diphenhydrAMINE 50 MG/ML VIAL ONE (15:09)
[2023-08-13 17:59] VITALS: BMI 27.7
[2023-08-13] MEDS: Famotidine 20 MG TAB PO SCH (21:11)
[2023-08-14] MEDS: HYDROcodone/Acetaminophen 10/325 mg Tablet PO PRN ×2 (00:43→11:55)
[2023-08-14] MEDS: Cefepime 2 GM in Sodium Chloride 0.9% 100 ML IVPB SCH ×2 (00:45→13:40)
[2023-08-14 07:28] LABS: #Eosinphils 0.3 thou/uL (0.0-0.7); #Monocytes 0.5 thou/uL (0.11-0.59); #Neutrophils 3.8 thou/uL (1.40-6.50); %Basophils 0.7 % (0.0-1.0); %Eosinophils 5.4 % (0.0-10.0); %Lymphocytes 22.4 % (21.0-51.0); %Monocytes 8.1 % (0.0-10.0); %Neutrophils 63.1 % (42.0-75.0); Hematocrit 31.2 % (42.0-52.0); Mean Corpuscular HGB CONC 32.1 g/dL (32.0-36.0); Mean Corpuscular Hemoglobin 25.3 pg (27.0-31.0); Mean Corpuscular Volume 78.8 fl (78.0-98.0); Mean Platelet Volume 9.9 fL (7.4-10.4); Platelet Count 199 10x3/uL (130-400); RBC Distribution Width 17.2 % (11.5-14.5); Red Blood Cell (RBC) Count 3.96 mill/uL (4.70-6.10); White Blood Cell (WBC) Count 6.1 10x3/uL (4.8-10.8)
[2023-08-14 07:52] LABS: Anion Gap 10 mmol/L (10-20); BUN (Urea Nitrogen) 13 mg/dL (8.4-25.7); Calc. Creatinine Clearance 86 mL/min (70-130); Calcium 8.3 mg/dL (7.8-10.44); Carbon Dioxide 24 mmol/L (23-31); Chloride 99 mmol/L (98-107); Estimated GFR 86; Glucose 90 mg/dL (83-110); Potassium 4.2 mmol/L (3.5-5.1); Sodium 129 mmol/L (136-145)
[2023-08-14] MEDS ORDERED: FLU VACC QS2023(65UP)/MF59C/PF 60 MCG/0.5 ML SYRINGE IM ONE (09:00)
[2023-08-14] MEDS: Azithromycin 250 MG TAB PO SCH (09:21)
[2023-08-14] MEDS: Famotidine 20 MG TAB PO SCH ×2 (09:21→22:16)
[2023-08-14] MEDS: Enoxaparin 40 MG (0.4 mL) SYRINGE SC SCH (09:22)
[2023-08-14] MEDS ORDERED: diphenhydrAMINE 25 MG CAP PO PRN (11:55)
[2023-08-14] MEDS ORDERED: Melatonin 3 MG TAB PO PRN (12:12)
[2023-08-14 14:21] LABS: Campy jejuni + coli by PCR Negative (Negative); STEC Shiga Toxin 1+2 Negative (Negative); Salmonella spp. by PCR Negative (Negative); Shigella spp + EIEC by PCR Negative (Negative)
[2023-08-14] MEDS ORDERED: Ondansetron ODT 4 MG TAB PO PRN (14:24)
[2023-08-14] MEDS ORDERED: Gabapentin 300 MG CAP PO SCH (15:00)
[2023-08-14] MEDS: Gabapentin 300 MG CAP PO SCH ×2 (15:54→22:16)
[2023-08-15] MEDS: Cefepime 2 GM in Sodium Chloride 0.9% 100 ML IVPB SCH ×2 (01:33→13:10)
[2023-08-15] MEDS: HYDROcodone/Acetaminophen 10/325 mg Tablet PO PRN (08:54)
[2023-08-15] MEDS: Famotidine 20 MG TAB PO SCH ×2 (08:56→20:36)
[2023-08-15] MEDS: Amlodipine 5 MG TAB PO SCH (08:57)
[2023-08-15] MEDS ORDERED: Amlodipine 5 MG TAB PO SCH (09:00)
[2023-08-15] MEDS: Azithromycin 250 MG TAB PO SCH (09:02)
[2023-08-15] MEDS: Citalopram 20 MG TAB PO SCH (09:02)
[2023-08-15] MEDS: Aspirin 81 mg Enteric Coated Tablet PO SCH (09:02)
[2023-08-15] MEDS: Gabapentin 300 MG CAP PO SCH ×3 (09:03→20:36)
[2023-08-15] MEDS: Atenolol 25 MG TAB PO SCH (09:04)
[2023-08-15] MEDS: Enoxaparin 40 MG (0.4 mL) SYRINGE SC SCH (09:05)
[2023-08-15 10:15] LABS: #Eosinphils 0.3 thou/uL (0.0-0.7); #Monocytes 0.5 thou/uL (0.11-0.59); %Basophils 0.4 % (0.0-1.0); %Lymphocytes 14.2 % (21.0-51.0); %Monocytes 7.1 % (0.0-10.0); Hematocrit 32.2 % (42.0-52.0); Hemoglobin 10.3 g/dL (14.0-18.0); Mean Corpuscular Hemoglobin 25.3 pg (27.0-31.0); Mean Corpuscular Volume 79.1 fl (78.0-98.0); Mean Platelet Volume 10.2 fL (7.4-10.4); Platelet Count 192 10x3/uL (130-400); RBC Distribution Width 17.2 % (11.5-14.5); Red Blood Cell (RBC) Count 4.07 mill/uL (4.70-6.10); White Blood Cell (WBC) Count 6.8 10x3/uL (4.8-10.8)
[2023-08-15 10:36] LABS: Anion Gap 12 mmol/L (10-20); BUN (Urea Nitrogen) 14 mg/dL (8.4-25.7); Calc. Creatinine Clearance 92 mL/min (70-130); Calcium 8.7 mg/dL (7.8-10.44); Carbon Dioxide 22 mmol/L (23-31); Chloride 103 mmol/L (98-107); Estimated GFR 88; Glucose 127 mg/dL (83-110); Potassium 3.7 mmol/L (3.5-5.1); Sodium 133 mmol/L (136-145)
[2023-08-15] MEDS ORDERED: HYDROcodone/Acetaminophen 10/325 mg Tablet PO PRN (19:20)
[2023-08-16] MEDS: Cefepime 2 GM in Sodium Chloride 0.9% 100 ML IVPB SCH (00:15)
[2023-08-16] MEDS: Atenolol 25 MG TAB PO SCH (08:46)
[2023-08-16] MEDS: Enoxaparin 40 MG (0.4 mL) SYRINGE SC SCH (08:51)
[2023-08-16] MEDS: Gabapentin 300 MG CAP PO SCH ×2 (08:51→14:19)
[2023-08-16] MEDS: Citalopram 20 MG TAB PO SCH (08:51)
[2023-08-16] MEDS: Famotidine 20 MG TAB PO SCH (08:51)
[2023-08-16] MEDS: Aspirin 81 mg Enteric Coated Tablet PO SCH (08:51)
[2023-08-16] MEDS: Amlodipine 5 MG TAB PO SCH (08:52)
[2023-08-16 09:21] LABS: #Eosinphils 0.3 thou/uL (0.0-0.7); #Monocytes 0.5 thou/uL (0.11-0.59); #Neutrophils 4.4 thou/uL (1.40-6.50); %Basophils 0.6 % (0.0-1.0); %Eosinophils 4.9 % (0.0-10.0); %Lymphocytes 20.4 % (21.0-51.0); %Monocytes 7.4 % (0.0-10.0); %Neutrophils 66.5 % (42.0-75.0); Hematocrit 31.4 % (42.0-52.0); Hemoglobin 9.8 g/dL (14.0-18.0); Mean Corpuscular HGB CONC 31.2 g/dL (32.0-36.0); Mean Corpuscular Hemoglobin 24.8 pg (27.0-31.0); Mean Corpuscular Volume 79.5 fl (78.0-98.0); Mean Platelet Volume 9.9 fL (7.4-10.4); Platelet Count 197 10x3/uL (130-400); RBC Distribution Width 17.1 % (11.5-14.5); Red Blood Cell (RBC) Count 3.95 mill/uL (4.70-6.10); White Blood Cell (WBC) Count 6.5 10x3/uL (4.8-10.8)
[2023-08-16 11:59] VITALS: BP 132/57; TEMP 97.4
[2023-08-16 15:14] LABS: Anion Gap 12 mmol/L (10-20); BUN (Urea Nitrogen) 13 mg/dL (8.4-25.7); Calc. Creatinine Clearance 105 mL/min (70-130); Calcium 8.5 mg/dL (7.8-10.44); Carbon Dioxide 22 mmol/L (23-31); Chloride 102 mmol/L (98-107); Estimated GFR 91; Glucose 98 mg/dL (83-110); Potassium 4.2 mmol/L (3.5-5.1); Sodium 132 mmol/L (136-145)
== END 2023-08-16 18:06 | disposition home or self-care (01) | DRG 178 ==
LOC: ERS 10:36 → T4-B 14:53 → OBSVTOIN 08-14 14:35
PROVIDERS: ADMIT Hospitalist; ATTEND Hospitalist
DX: J69.0 Pneumonitis due to inhalation of food and vomit (principal); A04.72 Enterocolitis due to Clostridium difficile, not specified as recurrent; T83.511A Infection and inflammatory reaction due to indwelling urethral catheter, initial encounter; G82.20 Paraplegia, unspecified; E87.1 Hypo-osmolality and hyponatremia; I10 Essential (primary) hypertension; I25.10 Atherosclerotic heart disease of native coronary artery without angina pectoris; Z95.1 Presence of aortocoronary bypass graft; R82.81 Pyuria; R31.9 Hematuria, unspecified; K40.90 Unilateral inguinal hernia, without obstruction or gangrene, not specified as recurrent; K44.9 Diaphragmatic hernia without obstruction or gangrene; E78.5 Hyperlipidemia, unspecified; F41.9 Anxiety disorder, unspecified; K21.9 Gastro-esophageal reflux disease without esophagitis; N31.9 Neuromuscular dysfunction of bladder, unspecified; Z96.652 Presence of left artificial knee joint; Z85.51 Personal history of malignant neoplasm of bladder; Z79.2 Long term (current) use of antibiotics; Z79.899 Other long term (current) drug therapy; Z98.890 Other specified postprocedural states; Z11.52 Encounter for screening for COVID-19
CPT/HCPCS: 36415; 71045; 74177; 80048; 80053; 81001; 83605; 83690; 83735; 83880; 84484; 85025; 85610; 85730; 87040; 87077; 87086; 87186; 87324; 87449; 87505; 93005; 94760; 96365; 96367; 96375; 96376; 97139; G0378; J0692; J1200; J1650; J2405; J3370-JW; J3490; Q0162

== ENCOUNTER 2023-12-19 11:32 | Inpatient (IN) | payer MEDICARE ==
[2023-12-19] MEDS ORDERED: Benzonatate 100 MG CAP PO PRN (15:22)
[2023-12-19 15:33] VITALS: BMI 3884.1
[2023-12-19] MEDS ORDERED: Transdermal Patch Removal TOP SCH (16:00)
[2023-12-19] MEDS: Ferrous Sulfate 325 MG TAB PO SCH (17:42)
[2023-12-19] MEDS: Fosfomycin 3 GM/Packet PO SCH (19:27)
[2023-12-19] MEDS: Gabapentin 300 MG CAP PO SCH (21:08)
[2023-12-19] MEDS: Ascorbic Acid 500 mg Chewable Tablet PO SCH (21:08)
[2023-12-19] MEDS: Baclofen 10 MG TAB PO SCH (21:08)
[2023-12-20 06:49] LABS: #Basophils 0.03 10x3/uL (0.0-0.2); %Basophils 0.6 % (0.0-1.0); %Eosinophils 11.4 % (0.0-10.0); %Lymphocytes 30.6 % (21.0-51.0); %Monocytes 7.4 % (0.0-10.0); %Neutrophils 49.8 % (42.0-75.0); Hematocrit 30.3 % (42.0-52.0); Hemoglobin 9.4 g/dL (14.0-18.0); Mean Corpuscular Volume 83.7 fL (78.0-98.0); Mean Platelet Volume 10.7 fL (7.4-10.4); Platelet Count 160 10x3/uL (130-400); RBC Distribution Width 20.2 % (11.5-14.5); Red Blood Cell (RBC) Count 3.62 mill/uL (4.70-6.10)
[2023-12-20 07:29] LABS: Anion Gap 13 mmol/L (10-20); BUN (Urea Nitrogen) 17 mg/dL (8.4-25.7); Calc. Creatinine Clearance 106 mL/min (70-130); Carbon Dioxide 23 mmol/L (23-31); Chloride 108 mmol/L (98-107); Estimated GFR 92; Glucose 87 mg/dL (83-110); Potassium 3.8 mmol/L (3.5-5.1); Sodium 140 mmol/L (136-145)
[2023-12-20] MEDS: Pantoprazole DR 40 MG TAB PO SCH (09:44)
[2023-12-20] MEDS: Hydrochlorothiazide 25 MG TAB PO SCH (09:44)
[2023-12-20] MEDS: Aspirin 81 mg Enteric Coated Tablet PO SCH (09:45)
[2023-12-20] MEDS: Citalopram 20 MG TAB PO SCH (09:45)
[2023-12-20] MEDS: HYDROcodone/Acetaminophen 10/325 mg Tablet PO PRN (09:45)
[2023-12-20] MEDS: Losartan 25 MG TAB PO SCH (09:45)
[2023-12-20] MEDS: Atorvastatin Calcium 20 MG TAB PO SCH (09:45)
[2023-12-20] MEDS: Atenolol 25 MG TAB PO SCH (09:45)
[2023-12-20] MEDS: Docusate 100 MG CAP PO SCH (09:45)
[2023-12-20] MEDS: Furosemide 40 MG TAB PO SCH (09:45)
[2023-12-20] MEDS: Lidocaine 4% Patch TP SCH (11:41)
[2023-12-20] MEDS: Transdermal Patch Removal TOP SCH (21:35)
[2023-12-21 05:15] LABS: #Basophils 0.05 10x3/uL (0.0-0.2); %Basophils 1.2 % (0.0-1.0); %Eosinophils 12.7 % (0.0-10.0); %Lymphocytes 37.6 % (21.0-51.0); Hematocrit 31.3 % (42.0-52.0); Hemoglobin 9.7 g/dL (14.0-18.0); Mean Corpuscular Hemoglobin 25.9 pg (27.0-31.0); Mean Corpuscular Volume 83.5 fL (78.0-98.0); Mean Platelet Volume 10.6 fL (7.4-10.4); Platelet Count 165 10x3/uL (130-400); RBC Distribution Width 19.8 % (11.5-14.5); Red Blood Cell (RBC) Count 3.75 mill/uL (4.70-6.10)
[2023-12-21 06:01] LABS: Anion Gap 14 mmol/L (10-20); BUN (Urea Nitrogen) 22 mg/dL (8.4-25.7); Calc. Creatinine Clearance 99 mL/min (70-130); Calcium 9.2 mg/dL (7.8-10.44); Carbon Dioxide 24 mmol/L (23-31); Chloride 105 mmol/L (98-107); Estimated GFR 90; Glucose 93 mg/dL (83-110); Potassium 3.7 mmol/L (3.5-5.1); Sodium 139 mmol/L (136-145)
[2023-12-21 08:26] VITALS: BMI 3884.1
[2023-12-21] MEDS: Atorvastatin Calcium 40 MG TAB PO SCH (08:44)
[2023-12-21] MEDS: Enoxaparin 40 MG (0.4 mL) SYRINGE SC SCH (08:46)
[2023-12-21] MEDS ORDERED: Iopamidol 370 76% 100 ML VIAL ONE (13:23)
[2023-12-22 09:00] LABS: Anion Gap 14 mmol/L (10-20); BUN (Urea Nitrogen) 20 mg/dL (8.4-25.7); Calc. Creatinine Clearance 94 mL/min (70-130); Calcium 9.1 mg/dL (7.8-10.44); Carbon Dioxide 28 mmol/L (23-31); Chloride 101 mmol/L (98-107); Estimated GFR 89; Glucose 92 mg/dL (83-110); Potassium 3.2 mmol/L (3.5-5.1); Sodium 140 mmol/L (136-145)
[2023-12-22 09:42] LABS: #Basophils 0.04 10x3/uL (0.0-0.2); %Basophils 0.9 % (0.0-1.0); %Eosinophils 13.2 % (0.0-10.0); %Lymphocytes 34.9 % (21.0-51.0); %Neutrophils 42.8 % (42.0-75.0); Hemoglobin 10.4 g/dL (14.0-18.0); Mean Corpuscular HGB CONC 30.6 g/dL (32.0-36.0); Mean Corpuscular Hemoglobin 26.3 pg (27.0-31.0); Mean Corpuscular Volume 85.9 fL (78.0-98.0); Mean Platelet Volume 10.7 fL (7.4-10.4); Platelet Count 198 10x3/uL (130-400); RBC Distribution Width 19.3 % (11.5-14.5); Red Blood Cell (RBC) Count 3.96 mill/uL (4.70-6.10)
[2023-12-22 12:13] VITALS: BP 108/55; TEMP 98.1
[2023-12-22] MEDS: Potassium Chloride 20 MEQ TAB PO SCH (12:42)
[2023-12-22 15:16] LABS: Amphetamine Not Detected (NotDetected); Barbiturates Screen Not Detected (NotDetected); Benzodiazepine Screen Not Detected (NotDetected); Cocaine Metabolite Screen Not Detected (NotDetected); Methadone Not Detected (NotDetected); Methamphetamine Not Detected (NotDetected); Opiate Screen Detected (NotDetected); Oxycodone Screen Not Detected (NotDetected); Phencyclidine (PCP) Not Detected (NotDetected); THC/Cannabinoid Screen Not Detected (NotDetected); Tricyclic Screen Not Detected (NotDetected)
== END 2023-12-22 15:35 | disposition home health service (06) | DRG 69 ==
LOC: 2SE 11:34 → UNDOADMIN 11:34 → INTOOBSV 13:33 → 2SE 13:33 → OBSVTOIN 12-21 06:23 → 2SE 12-22 08:01
PROVIDERS: ADMIT Family Medicine; ATTEND Family Medicine
DX: G45.9 Transient cerebral ischemic attack, unspecified (principal); G83.4 Cauda equina syndrome; G82.20 Paraplegia, unspecified; I25.10 Atherosclerotic heart disease of native coronary artery without angina pectoris; E78.5 Hyperlipidemia, unspecified; K21.9 Gastro-esophageal reflux disease without esophagitis; Z96.652 Presence of left artificial knee joint; D63.1 Anemia in chronic kidney disease; I12.9 Hypertensive chronic kidney disease with stage 1 through stage 4 chronic kidney disease, or unspecified chronic kidney disease; L89.90 Pressure ulcer of unspecified site, unspecified stage; Z95.1 Presence of aortocoronary bypass graft; Z86.718 Personal history of other venous thrombosis and embolism; Z85.51 Personal history of malignant neoplasm of bladder; Z79.899 Other long term (current) drug therapy
CPT/HCPCS: 36415; 70450; 80048; 80306; 84145; 85025; 93005; 93010; 93306; 93880; 96375; 97139; G0378; J1650; Q9967

== ENCOUNTER 2024-04-03 17:08 | Inpatient (IN) | payer MEDICARE ==
[2024-04-03 18:23] LABS: #Basophils 0.04 10x3/uL (0.0-0.2); %Basophils 0.7 % (0.0-1.0); %Lymphocytes 24.2 % (21.0-51.0); %Monocytes 9.5 % (0.0-10.0); %Neutrophils 63.1 % (42.0-75.0); Hematocrit 39.9 % (42.0-52.0); Hemoglobin 12.9 g/dL (14.0-18.0); Mean Corpuscular HGB CONC 32.3 g/dL (32.0-36.0); Mean Corpuscular Hemoglobin 27.3 pg (27.0-31.0); Mean Corpuscular Volume 84.4 fL (78.0-98.0); Mean Platelet Volume 9.6 fL (7.4-10.4); Platelet Count 247 10x3/uL (130-400); RBC Distribution Width 15.8 % (11.5-14.5); Red Blood Cell (RBC) Count 4.73 mill/uL (4.70-6.10)
[2024-04-03 18:28] LABS: Bacteria/HPF 4+ HPF (None Seen); Bilirubin Negative (Negative); Blood, Urine 2+ (Negative); CAUTI Indications for Culture Alt mental st,lethar; Clarity Turbid (Clear); Glucose, Urine (Dipstick) Normal (Negative); Ketone, Urine Negative (Negative); Leukocyte 500 Leu/uL (Negative); Nitrite Negative (Negative); Protein, Urine (Dipstick) 50 mg/dL (Neg-Trace); RBC/HPF 21-50 HPF (0-3); Specific Gravity, Urine 1.021 (1.002-1.036); Squamous Epithelial 0-3 HPF (0-3); WBC/HPF Greater than 50 HPF (0-3)
[2024-04-03 18:30] LABS: Urine Culture Reflex Yes Yes
[2024-04-03 18:36] LABS: PTT 32.3 sec (22.9-36.1); Prothrombin Time 13.4 sec (12.0-14.7)
[2024-04-03 18:39] LABS: ALT (SGPT) 20 U/L (8-55); AST (SGOT) 21 U/L (5-34); Albumin 3.4 g/dL (3.4-4.8); Alkaline Phosphatase 100 U/L (40-110); Anion Gap 19 mmol/L (10-20); BUN (Urea Nitrogen) 32 mg/dL (8.4-25.7); Bilirubin, Total 0.6 mg/dL (0.2-1.2); Calc. Creatinine Clearance 0 mL/min (70-130); Calcium 9.3 mg/dL (7.8-10.44); Carbon Dioxide 23 mmol/L (23-31); Chloride 97 mmol/L (98-107); Estimated GFR 58; Globulin 4.2 g/dL (2.4-3.5); Glucose 98 mg/dL (83-110); Lipase 26 U/L (8-78); Potassium 3.6 mmol/L (3.5-5.1); Protein, Total 7.6 g/dL (5.8-8.1); Sodium 135 mmol/L (136-145)
[2024-04-03 18:44] LABS: Troponin I Less than 0.010 ng/mL (< 0.028)
[2024-04-03 19:13] LABS: SARS-CoV-2 E Target Negative; SARS-CoV-2 N2 Target Negative; SARS-CoV-2 NAA Rapid Test Not Detected (NotDetected); SARS-CoV-2 RdRP gene Negative
[2024-04-03] MEDS ORDERED: Cefepime 2 GM VIAL ONE (20:02)
[2024-04-03] MEDS ORDERED: Sodium Chloride 0.9% 100 ML ONE (20:02)
[2024-04-03 21:12] LABS: Lactic Acid 0.9 mmol/L (0.5-2.2)
[2024-04-04 00:45] VITALS: BMI 28.5
[2024-04-04] MEDS: Acetaminophen 325 MG TAB PO PRN (01:47)
[2024-04-04] MEDS: traMADol HCl 50 MG TAB PO PRN (01:47)
[2024-04-04] MEDS: Mineral Oil ENEMA PR SCH (05:29)
[2024-04-04 06:53] LABS: #Basophils 0.04 10x3/uL (0.0-0.2); %Basophils 0.8 % (0.0-1.0); %Eosinophils 7.3 % (0.0-10.0); %Lymphocytes 29.5 % (21.0-51.0); %Monocytes 9.8 % (0.0-10.0); %Neutrophils 52.2 % (42.0-75.0); Hematocrit 31.7 % (42.0-52.0); Hemoglobin 10.3 g/dL (14.0-18.0); Mean Corpuscular HGB CONC 32.5 g/dL (32.0-36.0); Mean Corpuscular Hemoglobin 27.3 pg (27.0-31.0); Mean Corpuscular Volume 84.1 fL (78.0-98.0); Mean Platelet Volume 9.7 fL (7.4-10.4); Platelet Count 221 10x3/uL (130-400); RBC Distribution Width 15.6 % (11.5-14.5); Red Blood Cell (RBC) Count 3.77 mill/uL (4.70-6.10)
[2024-04-04 07:03] LABS: Anion Gap 14 mmol/L (10-20); BUN (Urea Nitrogen) 28 mg/dL (8.4-25.7); Calc. Creatinine Clearance 86 mL/min (70-130); Calcium 8.5 mg/dL (7.8-10.44); Carbon Dioxide 23 mmol/L (23-31); Chloride 100 mmol/L (98-107); Estimated GFR 85; Glucose 110 mg/dL (83-110); Potassium 3.2 mmol/L (3.5-5.1); Sodium 134 mmol/L (136-145)
[2024-04-04 09:11] VITALS: BMI 28.5
[2024-04-04] MEDS: Polyethylene Glycol 3350 17 GM Packet PO SCH (09:19)
[2024-04-04] MEDS: Potassium Chloride 20 MEQ TAB PO SCH (09:20)
[2024-04-04] MEDS: Cefepime 1 GM in Sodium Chloride 0.9% 100 ML IVPB SCH ×2 (09:20→16:55)
[2024-04-04] MEDS: Senokot S 8.6-50 MG TAB PO SCH (09:26)
[2024-04-04] MEDS: metroNIDAZOLE 500 MG in Premix 1 BAG IVPB SCH (09:26)
[2024-04-04] MEDS: NS 0.9% w/ 20 MEQ KCL 1,000 ML/1,000 ML BAG IV SCH (09:26)
[2024-04-04] MEDS: Ondansetron PF 4 MG/2 ML Vial IVP PRN (15:54)
[2024-04-05 05:43] LABS: #Basophils 0.03 10x3/uL (0.0-0.2); %Basophils 0.5 % (0.0-1.0); %Eosinophils 5.3 % (0.0-10.0); %Lymphocytes 22.2 % (21.0-51.0); %Monocytes 7.6 % (0.0-10.0); %Neutrophils 64.1 % (42.0-75.0); Hematocrit 30.6 % (42.0-52.0); Hemoglobin 9.7 g/dL (14.0-18.0); Mean Corpuscular HGB CONC 31.7 g/dL (32.0-36.0); Mean Corpuscular Hemoglobin 26.9 pg (27.0-31.0); Mean Platelet Volume 9.8 fL (7.4-10.4); Platelet Count 193 10x3/uL (130-400); RBC Distribution Width 15.8 % (11.5-14.5)
[2024-04-05] MEDS: Gabapentin 300 MG CAP PO SCH ×2 (05:48→14:45)
[2024-04-05 05:58] LABS: Anion Gap 10 mmol/L (10-20); BUN (Urea Nitrogen) 18 mg/dL (8.4-25.7); Calc. Creatinine Clearance 100 mL/min (70-130); Calcium 8.3 mg/dL (7.8-10.44); Carbon Dioxide 24 mmol/L (23-31); Chloride 108 mmol/L (98-107); Estimated GFR 89; Glucose 98 mg/dL (83-110); Sodium 138 mmol/L (136-145)
[2024-04-05] MEDS: Aspirin 81 mg Enteric Coated Tablet PO SCH (11:10)
[2024-04-05] MEDS: Baclofen 10 MG TAB PO SCH (14:46)
[2024-04-05] MEDS: Ascorbic Acid 500 mg Chewable Tablet PO SCH (21:30)
[2024-04-05] MEDS: Heparin 5,000 UNITS/ML VIAL SC SCH (21:31)
[2024-04-05] MEDS: Senokot S 8.6-50 MG TAB PO SCH (21:31)
[2024-04-05] MEDS: Polyethylene Glycol 3350 17 GM Packet PO SCH (21:32)
[2024-04-05] MEDS: Saccharomyces boulardii 250 MG CAP PO SCH (21:34)
[2024-04-06] MEDS: Cefepime 1 GM VIAL ONE (02:13)
[2024-04-06 05:52] LABS: #Basophils 0.04 10x3/uL (0.0-0.2); %Basophils 0.6 % (0.0-1.0); %Eosinophils 4.4 % (0.0-10.0); %Lymphocytes 24.2 % (21.0-51.0); %Monocytes 6.4 % (0.0-10.0); %Neutrophils 63.8 % (42.0-75.0); Hemoglobin 9.6 g/dL (14.0-18.0); Mean Corpuscular Hemoglobin 27.2 pg (27.0-31.0); Mean Platelet Volume 9.8 fL (7.4-10.4); Platelet Count 199 10x3/uL (130-400); Red Blood Cell (RBC) Count 3.53 mill/uL (4.70-6.10)
[2024-04-06 06:08] LABS: Anion Gap 11 mmol/L (10-20); BUN (Urea Nitrogen) 18 mg/dL (8.4-25.7); Calc. Creatinine Clearance 103 mL/min (70-130); Calcium 8.3 mg/dL (7.8-10.44); Carbon Dioxide 23 mmol/L (23-31); Chloride 109 mmol/L (98-107); Estimated GFR 90; Glucose 97 mg/dL (83-110); Potassium 4.6 mmol/L (3.5-5.1); Sodium 138 mmol/L (136-145)
[2024-04-06] MEDS: Atorvastatin Calcium 40 MG TAB PO SCH (08:24)
[2024-04-06] MEDS: Citalopram 20 MG TAB PO SCH (08:24)
[2024-04-06] MEDS: Pantoprazole DR 40 MG TAB PO SCH (08:24)
[2024-04-06] MEDS: Aspirin 81 mg Enteric Coated Tablet PO SCH (08:24)
[2024-04-06] MEDS ORDERED: Non-Formulary Item 1 EACH (Losartan [Cozaar] 50 MG Tab) PO SCH (09:00)
[2024-04-06] MEDS: Meropenem 1 GM in Sodium Chloride 0.9% 100 ML IVPB SCH ×2 (15:00→21:14)
[2024-04-07] MEDS ORDERED: Lidocaine 1% PF 5 ML VIAL ONE (09:42)
[2024-04-08] MEDS: Losartan 25 MG TAB PO SCH (10:45)
[2024-04-08 12:01] VITALS: BP 160/74; TEMP 97.4
== END 2024-04-08 15:11 | disposition home or self-care (01) | DRG 592 ==
LOC: ERS 17:08 → SURG A 21:17
PROVIDERS: ADMIT Internal Medicine; ATTEND Internal Medicine
DX: L89.214 Pressure ulcer of right hip, stage 4 (principal); A41.9 Sepsis, unspecified organism; G93.41 Metabolic encephalopathy; T83.510A Infection and inflammatory reaction due to cystostomy catheter, initial encounter; N17.9 Acute kidney failure, unspecified; E87.20 Acidosis, unspecified; G82.20 Paraplegia, unspecified; E87.1 Hypo-osmolality and hyponatremia; L89.153 Pressure ulcer of sacral region, stage 3; K59.00 Constipation, unspecified; N18.2 Chronic kidney disease, stage 2 (mild); I25.10 Atherosclerotic heart disease of native coronary artery without angina pectoris; I12.9 Hypertensive chronic kidney disease with stage 1 through stage 4 chronic kidney disease, or unspecified chronic kidney disease; D63.1 Anemia in chronic kidney disease; E87.6 Hypokalemia; Z79.82 Long term (current) use of aspirin; Z79.899 Other long term (current) drug therapy; K21.9 Gastro-esophageal reflux disease without esophagitis; Z98.890 Other specified postprocedural states; Z95.0 Presence of cardiac pacemaker
CPT/HCPCS: 36415; 36569; 71045; 74177; 76937; 77001; 80048; 80053; 81001; 83605; 83690; 83735; 84484; 85025; 85610; 85730; 87040; 87077; 87086; 87186; 93005; 94760; 96374; 97139; C1751; J0692; J1644; J2185; J2405; J3480; Q9967; U0002

== ENCOUNTER 2024-08-04 22:07 | Emergency (ER) | payer MEDICARE ==
[2024-08-05 00:19] LABS: #Basophils 0.05 10x3/uL (0.0-0.2); %Basophils 0.5 % (0.0-1.0); %Eosinophils 2.8 % (0.0-10.0); %Lymphocytes 16.5 % (21.0-51.0); %Monocytes 5.6 % (0.0-10.0); %Neutrophils 73.9 % (42.0-75.0); Hemoglobin 8.7 g/dL (14.0-18.0); Mean Corpuscular HGB CONC 31.1 g/dL (32.0-36.0); Mean Corpuscular Hemoglobin 25.1 pg (27.0-31.0); Mean Corpuscular Volume 80.9 fL (78.0-98.0); Mean Platelet Volume 9.6 fL (7.4-10.4); Platelet Count 279 10x3/uL (130-400); RBC Distribution Width 17.2 % (11.5-14.5); Red Blood Cell (RBC) Count 3.46 mill/uL (4.70-6.10)
[2024-08-05 00:42] LABS: ALT (SGPT) 10 U/L (8-55); AST (SGOT) 13 U/L (5-34); Albumin 2.5 g/dL (3.4-4.8); Alkaline Phosphatase 75 U/L (40-110); Anion Gap 16 mmol/L (10-20); BUN (Urea Nitrogen) 18 mg/dL (8.4-25.7); Bilirubin, Total 0.4 mg/dL (0.2-1.2); Calc. Creatinine Clearance 0 mL/min (70-130); Calcium 8.7 mg/dL (7.8-10.44); Carbon Dioxide 24 mmol/L (23-31); Chloride 103 mmol/L (98-107); Estimated GFR 68; Globulin 4.3 g/dL (2.4-3.5); Glucose 120 mg/dL (83-110); Potassium 3.7 mmol/L (3.5-5.1); Protein, Total 6.8 g/dL (5.8-8.1); Sodium 139 mmol/L (136-145)
== END 2024-08-05 04:02 | disposition home or self-care (01) ==
LOC: ERS 22:07
DX: B34.9 Viral infection, unspecified (principal); R63.0 Anorexia; I10 Essential (primary) hypertension; Z95.5 Presence of coronary angioplasty implant and graft; Z87.891 Personal history of nicotine dependence
CPT/HCPCS: 36415; 71045; 80053; 85025; 87428